=== PATIENT | female | born 1990 | race Caucasian/White ===

== ENCOUNTER 2021-08-28 13:44 | Outpatient (CLI) | payer OTHER, SELFPAY ==
[2021-08-28 15:13] LABS: Rubella IgG Antibody 40.1 IU/ML
== END 2021-08-28 13:45 | disposition home or self-care (01) ==
PROVIDERS: Visit Provider Obstetrics & Gynecology
DX: Z31.9 Encounter for procreative management, unspecified (principal)
CPT/HCPCS: 36415; 86762

== ENCOUNTER 2022-04-16 15:10 | Outpatient (CLI) | payer OTHER, SELFPAY ==
--- NOTE | ~2022-04-16 | US_ITS ---
EXAMINATION: US OB <=14 wk fetus w TV DATE: 04/16/2022 16:17 INDICATION: Establish dating and viability of during first trimester. TECHNIQUE: Real-time pelvic ultrasound utilizing both a transvaginal and transabdominal probe was pe rformed. The interpreting radiologist was not present for the study. COMPARISON: None. FINDINGS: The uterus measures 10.6 x 6.2 x 7.7 cm. There is an intrauterine gestational sac. A yolk sac and fe bernadette pole are identified. The crown rump length measures 3.1 cm, which correlates with an estimated ge stational age of 10 weeks and 0 days. heart motion is identified measuring 169 beats per minute (bpm) by M-mode Doppler. The right ovary measures 2.5 x 1.3 x 1.6 cm. The left ovary measures 1.7 x 1.3 x 1.7 cm. Vascular eric w identified at both ovaries on color Doppler. There is no free fluid in the pelvis. IMPRESSION: 1. Single living fetus with heart rate of 169 bpm. 2. Gestational age by ultrasound of 10 weeks 0 day(s) +/- 6 day(s) with ultrasound estimated date of delivery (CAROLYNE) of 11/12/2022. Reviewed, dictated and finalized at location A. IMPRESSION: 1. Single living fetus with heart rate of 169 bpm. 2. Gestational age by ultrasound of 10 weeks 0 day(s) +/- 6 day(s) with ultras ound estimated date of delivery (CAROLYNE) of 11/12/2022.
== END 2022-04-16 15:11 | disposition home or self-care (01) ==
LOC: ANHIMG 15:12
PROVIDERS: Visit Provider Student in an Organized Health Care Education/Training Program
DX: Z34.90 Encounter for supervision of normal pregnancy, unspecified, unspecified trimester (principal); Z3A.10 10 weeks gestation of pregnancy
CPT/HCPCS: 76801; 76817

== ENCOUNTER 2022-05-08 15:44 | Outpatient (CLI) | payer OTHER, SELFPAY ==
[2022-05-08 16:29] LABS: Basophils Absolute Auto 0.1 K/mm3 (0.0-0.1); Basophils Percent Auto 0.6 % (0.2-1.2); Eosinophils Absolute Auto 0.1 K/mm3 (0-0.3); Eosinophils Percent Auto 1.6 % (0-4.4); Hematocrit 37.1 % (37.0-47.0); Hemoglobin 12.4 g/dL (12.0-15.0); Immature Granulocyte Absolute 0.03 K/mm3 (0.00-0.031); Immature Granulocyte Percent A 0.4 % (0-0.5); Lymphocytes Absolute Auto 2.01 K/mm3 (0.9-3.2); Lymphocytes Percent Auto 25.4 % (18.3-44.2); Mean Corpuscular HGB Conc 33.4 g/dl (32-36); Mean Corpuscular Hemoglobin 31.6 pg (26-34); Mean Corpuscular Volume 94.6 fl (80-100); Mean Platelet Volume 11.3 fl (7.4-10.4); Monocytes Absolute Auto 0.5 K/mm3 (0.1-0.6); Monocytes Percent Auto 6.6 % (2.6-8.5); Neutrophils Absolute Auto 5.2 K/mm3 (1.3-6.7); Neutrophils Percent Auto 65.4 % (45.5-73.1); Platelet Count Result 217 k/mm3 (150-375); Red Blood Count 3.92 M/mm3 (4.2-5.4); Red Cell Distribution Width 13.2 % (11.5-14.5); White Blood Count 7.9 K/mm3 (4.5-10.0)
[2022-05-08 20:29] LABS: Vitamin D 25 Hydroxy 48.2 ng/mL
[2022-05-08 20:52] LABS: Rubella IgG Antibody 29.7 IU/ML
[2022-05-08 20:56] LABS: HIV 1/2 Ab P24 Ag Result Negative (Negative)
[2022-05-08 20:59] LABS: Hepatitis C Virus Antibody Negative (Negative)
[2022-05-09 06:25] LABS: Rapid Plasma Reagin Non-Reactive (NonReactive)
[2022-05-13 11:31] LABS: Hematocrit 38.6 % (35.0-45.0); Hemoglobin 12.5 g/dL (11.7-15.5); MCH 31.7 pg (27.0-33.0); RDW 12.7 % (11.0-15.0); Red Blood Cell Count 3.94 Mill/uL (3.80-5.10)
== END 2022-05-08 15:45 | disposition home or self-care (01) ==
PROVIDERS: Visit Provider Student in an Organized Health Care Education/Training Program
DX: Z34.02 Encounter for supervision of normal first pregnancy, second trimester (principal)
CPT/HCPCS: 36415; 81243; 82306; 83021; 84443; 85025; 86592; 86703; 86762; 86787; 86803; 86850; 86900; 86901; G0432

== ENCOUNTER 2022-08-05 11:43 | Outpatient (CLI) | payer OTHER, SELFPAY ==
[2022-08-05 13:30] LABS: Basophils Percent Auto 0.4 % (0.2-1.2); Eosinophils Absolute Auto 0.2 K/mm3 (0-0.3); Eosinophils Percent Auto 2.3 % (0-4.4); Hematocrit 32.9 % (37.0-47.0); Immature Granulocyte Absolute 0.05 K/mm3 (0.00-0.031); Immature Granulocyte Percent A 0.5 % (0-0.5); Lymphocytes Absolute Auto 1.53 K/mm3 (0.9-3.2); Lymphocytes Percent Auto 16.1 % (18.3-44.2); Mean Corpuscular HGB Conc 33.4 g/dl (32-36); Mean Corpuscular Hemoglobin 31.9 pg (26-34); Mean Corpuscular Volume 95.4 fl (80-100); Mean Platelet Volume 10.8 fl (7.4-10.4); Monocytes Absolute Auto 0.6 K/mm3 (0.1-0.6); Monocytes Percent Auto 6.3 % (2.6-8.5); Neutrophils Absolute Auto 7.1 K/mm3 (1.3-6.7); Neutrophils Percent Auto 74.4 % (45.5-73.1); Platelet Count Result 223 k/mm3 (150-375); Red Blood Count 3.45 M/mm3 (4.2-5.4); Red Cell Distribution Width 13.3 % (11.5-14.5); White Blood Count 9.5 K/mm3 (4.5-10.0)
[2022-08-05 13:38] LABS: Glucose 1 Hour PP 50gm Dose 119 mg/dL
[2022-08-05 16:07] LABS: Hepatitis B Surface Antigen Negative (Negative)
== END 2022-08-05 11:44 | disposition home or self-care (01) ==
LOC: ANHLAB 11:45
PROVIDERS: Visit Provider Student in an Organized Health Care Education/Training Program
DX: Z34.02 Encounter for supervision of normal first pregnancy, second trimester (principal)
CPT/HCPCS: 36415; 82947; 85025; 87340

== ENCOUNTER 2022-09-16 08:55 | Outpatient (CLI) | payer OTHER, SELFPAY ==
[2022-09-16 10:02] LABS: Basophils Absolute Auto 0.1 K/mm3 (0.0-0.1); Basophils Percent Auto 0.5 % (0.2-1.2); Eosinophils Absolute Auto 0.2 K/mm3 (0-0.3); Eosinophils Percent Auto 1.7 % (0-4.4); Hematocrit 33.8 % (37.0-47.0); Hemoglobin 11.5 g/dL (12.0-15.0); Immature Granulocyte Absolute 0.08 K/mm3 (0.00-0.031); Immature Granulocyte Percent A 0.8 % (0-0.5); Lymphocytes Percent Auto 15.8 % (18.3-44.2); Mean Corpuscular Hemoglobin 32.1 pg (26-34); Mean Corpuscular Volume 94.4 fl (80-100); Mean Platelet Volume 11.3 fl (7.4-10.4); Monocytes Absolute Auto 0.9 K/mm3 (0.1-0.6); Monocytes Percent Auto 8.4 % (2.6-8.5); Neutrophils Absolute Auto 7.4 K/mm3 (1.3-6.7); Neutrophils Percent Auto 72.8 % (45.5-73.1); Platelet Count Result 214 k/mm3 (150-375); Red Blood Count 3.58 M/mm3 (4.2-5.4); Red Cell Distribution Width 13.4 % (11.5-14.5); White Blood Count 10.2 K/mm3 (4.5-10.0)
[2022-09-16 10:53] LABS: HIV 1/2 Ab P24 Ag Result Negative (Negative)
[2022-09-16 12:32] LABS: Rapid Plasma Reagin Non-Reactive (NonReactive)
== END 2022-09-16 08:56 | disposition home or self-care (01) ==
LOC: ANHLAB 08:57
PROVIDERS: Visit Provider Obstetrics & Gynecology
DX: Z34.02 Encounter for supervision of normal first pregnancy, second trimester (principal)
CPT/HCPCS: 36415; 85025; 86592; 86703; G0432

== ENCOUNTER 2022-11-07 09:58 | Outpatient (RCR) | payer OTHER, SELFPAY ==
--- NOTE | ~2022-11-07 | US_ITS ---
EXAMINATION: US OB limited DATE: 11/07/2022 11:04 INDICATION: Assess amniotic fluid index during third trimester . TECHNIQUE: Real-time ultrasound of the pelvis was performed. The interpreting radiologist was not pre sent for the study. COMPARISON: 04/16/2022 FINDINGS: There is a single living fetus in vertex presentation. The placenta is posterior. heart rate i s 138 beats per minute (bpm). The amniotic fluid index is 22.4 cm, which is slightly greater within t he normal range (5th%-95%: 7.1-21.4 cm at 40 weeks estimated gestational age). IMPRESSION: 1. Single living fetus in vertex presentation with heart rate of 138 bpm. 2. Mild polyhydramnios with amniotic fluid index of 22.4 which is slightly greater than the 95th perc entile of 21.4 cm. Reviewed, dictated and finalized at location A. IMPRESSION: 1. Single living fetus in vertex presentation with heart rate of 138 bpm . 2. Mild polyhydramnios with amniotic fluid index of 22.4 [address] is slightly grea ter than the 95th percentile of 21.4 cm.
[2022-11-07 11:26] VITALS: BP 108/69; PULSE 74
== END 2022-12-05 15:13 | disposition home or self-care (01) ==
LOC: ANHOBOP 09:58
PROVIDERS: Visit Provider Obstetrics & Gynecology
DX: O48.0 Post-term pregnancy (principal); O40.3XX0 Polyhydramnios, third trimester, not applicable or unspecified; Z3A.40 40 weeks gestation of pregnancy
CPT/HCPCS: 59025; 76815

== ENCOUNTER 2022-11-10 21:20 | Inpatient (IN) | payer OTHER, SELFPAY ==
[2022-11-10 21:31] VITALS: TEMP 36.3
[2022-11-10 22:00] VITALS: BP 108/71; PULSE 60
--- NOTE | 2022-11-10 22:01 | LDADM ---
This patient, Barbara Espinoza, was admitted to Labor/Delivery/Recovery 106 on 11/10/22 at 21:20. Plans for labor, pain management and were discussed with patient. Patient/family oriented to hospital policies and general routines including ID bracelet, bed and alarms, visiting hours, pain management, procedures, bathroom and other care routines, personal items, smoking policy, room service/diet and guest tray routines, security routines, and visiting hours. Patient/Family are encouraged to report perceived risks to care and to ask questions if they do not understand what they are told or what they should do. See OBIX for further documentation.
[2022-11-10 22:31] LABS: Basophils Percent Auto 0.4 % (0.2-1.2); Eosinophils Absolute Auto 0.1 K/mm3 (0-0.3); Eosinophils Percent Auto 1.4 % (0-4.4); Hematocrit 38.4 % (37.0-47.0); Hemoglobin 13.2 g/dL (12.0-15.0); Immature Granulocyte Absolute 0.02 K/mm3 (0.00-0.031); Immature Granulocyte Percent A 0.2 % (0-0.5); Lymphocytes Absolute Auto 2.22 K/mm3 (0.9-3.2); Lymphocytes Percent Auto 23.6 % (18.3-44.2); Mean Corpuscular HGB Conc 34.4 g/dl (32-36); Mean Corpuscular Hemoglobin 31.9 pg (26-34); Mean Corpuscular Volume 92.8 fl (80-100); Mean Platelet Volume 12.8 fl (7.4-10.4); Monocytes Absolute Auto 0.8 K/mm3 (0.1-0.6); Monocytes Percent Auto 8.4 % (2.6-8.5); Neutrophils Absolute Auto 6.2 K/mm3 (1.3-6.7); Platelet Count Result 197 k/mm3 (150-375); Red Blood Count 4.14 M/mm3 (4.2-5.4); Red Cell Distribution Width 14.2 % (11.5-14.5); White Blood Count 9.4 K/mm3 (4.5-10.0)
[2022-11-10 22:53] LABS: Atypical Lymphocytes Present; Platelet Estimate Adequate (Adequate)
[2022-11-10 22:54] LABS: Schistocytes None Seen (NORMAL)
[2022-11-11] VITALS (142 sets, daily range): BP systolic 72–167; BP diastolic 44–146; PULSE 54–183; RESP 16–18; TEMP 36–37.2; O2SAT 84–100; BMI 27.6
[2022-11-11] MEDS: fentaNYL CITRATE INJ (*CRX) 100 MCG/2 ML VIAL 50 MCG IV PUSH ×3 (02:27→03:35)
[2022-11-11] MEDS: LACTATED RINGERS 1,000 ML 999 ML IV CONT (03:35)
--- NOTE | 2022-11-11 03:49 | WPDANESEPP ---
Anes - Eval Pre Procedure Procedure: Labor epidural Date/Time: 11/11/22 03:49 Surgeon: Brenda Preop Diagnosis: ABD pain with contractions Pre Op Diagnosis: IOL Patient Data Age: 32 Gender: F Height: Weight: Last Vital Signs Temp 98 F 11/11/22 02:00 Pulse 60 11/10/22 22:00 BP 108/71 11/10/22 22:00 O2 Del Method Room Air 11/10/22 22:00 Allergies Allergy/AdvReac Type Severity Reaction Status Date / Time No Known Allergies Allergy Verified 11/04/22 08:22 Home Medications Medication Instructions Recorded Confirmed Type Al hyd-Mg tr-alg ac-sod bicarb 80 tablet PO 08/28/21 08/19/22 History mg-14.2 mg chewable tablet (Gaviscon) fluticasone propionate 50 1 spray intranasal BID 08/28/21 08/19/22 History mcg/actuation nasal spray,suspension (Flonase Allergy Relief) loratadine 10 mg tablet (Claritin) 10 mg PO DAILY 08/28/21 08/19/22 History omeprazole 20 mg capsule,delayed 20 mg PO DAILY 08/28/21 08/19/22 History release calcium carbonate 600 mg calcium 600 mg PO BID 04/08/22 08/19/22 History (1,500 mg) tablet (Calcium) prenat.vits,margarito,axh-qagq-oernq 1 tablet PO DAILY 04/08/22 08/19/22 History acetaminophen 325 mg capsule 325 mg PO Q6H PRN Pain 06/03/22 08/19/22 History (Tylenol) ferrous sulfate 325 mg (65 mg 325 mg PO DAILY 10/25/22 10/25/22 History iron) tablet (Iron (ferrous sulfate)) Laboratory Tests 11/10/22 11/10/22 11/10/22 22:24 22:24 22:24 WBC 9.4 K/mm3 K/mm3 (4.5-10.0) RBC 4.14 M/mm3 L M/mm3 (4.2-5.4) Hgb 13.2 g/dL g/dL (12.0-15.0) Hct 38.4 % % (37.0-47.0) MCV 92.8 fl fl (80-100) MCH 31.9 pg pg (26-34) MCHC 34.4 g/dl g/dl (32-36) RDW 14.2 % % (11.5-14.5) Plt Count 197 k/mm3 k/mm3 (150-375) MPV 12.8 fl H fl (7.4-10.4) Immature Gran % (Auto) 0.2 % % (0-0.5) Neut % (Auto) 66.0 % % (45.5-73.1) Lymph % (Auto) 23.6 % % (18.3-44.2) [place] % (Auto) 8.4 % % (2.6-8.5) Eos % (Auto) 1.4 % % (0-4.4) Baso % (Auto) 0.4 % % (0.2-1.2) Lymph # (Auto) 2.22 K/mm3 K/mm3 (0.9-3.2) [place] # (Auto) 0.8 K/mm3 H K/mm3 (0.1-0.6) Eos # (Auto) 0.1 K/mm3 K/mm3 (0-0.3) Baso # (Auto) 0.0 K/mm3 K/mm3 (0.0-0.1) Abs Immat Gran (auto) 0.02 K/mm3 K/mm3 (0.00-0.031) Absolute Neuts (auto) 6.2 K/mm3 K/mm3 (1.3-6.7) Absolute Nucleated RBC 0.0 K/mm3 K/mm3 (0.0-0.012) Nucleated RBC % 0.0 % % (0.0-0.2) Atypical Lymphocytes Present Platelet Estimate Adequate (Adequate) Schistocytes None seen (NORMAL) RPR Pending Blood Type A Positive Antibody Screen Negative Patient hx anesthesia problems: none Family hx anesthesia problems: none Results Review: All pre-operative results and documents have been reviewed as part of the pre-operative evaluation. [facility] Past Medical History Medical History (Updated 11/11/22 @ 03:53 by Giovanny Sandhu CRNA) Allergies GERD (gastroesophageal reflux disease) Headache and not yet delivered Surgical History Surgical History H/O sinus surgery 07/22 History of tonsillectomy and adenoidectomy 07/22 [place] teeth removed 2001 Family History Family History Sibling Alcoholism Depression Grandparent Melanoma Uterine cancer Lung cancer Hypertension Heart disease Mother Anxiety Social History Social History Smoking status: Never smoker Alcohol intake: current Substance use: never Lack of Transportation: No Lack of Food: Never True Current Housing: I Have Housing Concerned About Future Housing:
[2022-11-11] MEDS: OXYTOCIN 30 UNITS/NS 500 ML 30 UNITS/500 ML BAG 6 UNITS IV CONT (09:23)
[2022-11-11] MEDS: LACTATED RINGERS 1,000 ML 125 ML IV CONT (11:50)
[2022-11-11] MEDS: OXYTOCIN 30 UNITS/NS 500 ML 30 UNITS/500 ML BAG 125 UNITS IV CONT (13:18)
[2022-11-11 13:27] LABS: Rapid Plasma Reagin Non-Reactive (NonReactive)
[2022-11-11] MEDS: IBUPROFEN 600 MG TABLET PO (14:30)
--- NOTE | 2022-11-11 15:29 | OBPPTRN ---
1529 Patient transferred to post room #279 via W/C. Support person present. Oriented to unit, room, information board, rooming in, admission packet and security measures. Patient verbalizes understanding.
--- NOTE | 2022-11-12 03:32 | PM.IMHP ---
H&P: HPI History of Present Illness Date/Time: 11/12/22 03:32 Chief Complaint: Leaking of fluid Narrative: She presented to L and D with complaints of LOF. SROM confirmed. Irregular contractions. Cervix 1 cm. She was admitted. PNC uncomplicated. Labs reviewed. GBS neg. Review of Systems Review of Systems: All systems reviewed & are unremarkable except as noted in HPI and below Constitutional: Constitutional: Reports no additional constitutional complaints and Denies headache(s) Eyes: Eyes: Denies spots in vision ENT: Reports system reviewed and no additional complaints, except as documented and Denies headache(s) Cardiovascular: Cardiovascular: Denies chest pain and Denies dyspnea Respiratory: Respiratory: Denies dyspnea Gastrointestinal: Gastrointestinal: Reports no additional gastrointestinal complaints Genitourinary: Genitourinary: Reports amenorrhea Musculoskeletal: Musculoskeletal: Reports no additional musculoskeletal complaints Integumentary/Breasts: Skin/Breast: Denies breast mass and Denies rash Neurologic: Denies headache(s) Psychiatric: Psychiatric: Reports no additional psychiatric complaints [facility] Past Medical History Medical History Allergies GERD (gastroesophageal reflux disease) Headache and not yet delivered Surgical History Surgical History H/O sinus surgery 07/22 History of tonsillectomy and adenoidectomy 07/22 [place] teeth removed 2001 Family History Family History Sibling Alcoholism Depression Grandparent Melanoma Uterine cancer Lung cancer Hypertension Heart disease Mother Anxiety Social History Social History Smoking status: Never smoker Alcohol intake: current Substance use: never Lack of Transportation: No Lack of Food: Never True Current Housing: I Have Housing Concerned About Future Housing: No Difficulty Paying Gas/Electric Bills: No Difficulty Paying for Meds: No Currently Unemployed: No Education: Master's Degree or Higher Difficulty w/ Childcare or Family Care: No Spiritual care concerns: No Agree to blood products: Yes Meds Home Medications and Allergies Home Medications Medication Instructions Recorded Confirmed Type Al hyd-Mg tr-alg ac-sod bicarb 80 tablet PO 08/28/21 08/19/22 History mg-14.2 mg chewable tablet (Gaviscon) fluticasone propionate 50 1 spray intranasal BID 08/28/21 08/19/22 History mcg/actuation nasal spray,suspension (Flonase Allergy Relief) loratadine 10 mg tablet (Claritin) 10 mg PO DAILY 08/28/21 08/19/22 History omeprazole 20 mg capsule,delayed 20 mg PO DAILY 08/28/21 08/19/22 History release calcium carbonate 600 mg calcium 600 mg PO BID 04/08/22 08/19/22 History (1,500 mg) tablet (Calcium) prenat.vits,margarito,ksx-mael-mceos 1 tablet PO DAILY 04/08/22 08/19/22 History acetaminophen 325 mg capsule 325 mg PO Q6H PRN Pain 06/03/22 08/19/22 History (Tylenol) ferrous sulfate 325 mg (65 mg 325 mg PO DAILY 10/25/22 10/25/22 History iron) tablet (Iron (ferrous sulfate)) Allergies Allergy/AdvReac Type Severity Reaction Status Date / Time No Known Allergies Allergy Verified 11/04/22 08:22 Vital Signs Vital Signs - 24 hr 11/11/22 03:50 11/11/22 03:55 11/11/22 03:56 Temperature Pulse Rate 183 H Respiratory Rate Blood Pressure 167/146 H Pulse Oximetry 100 100 Oxygen Delivery 11/11/22 03:58 11/11/22 04:00 11/11/22 04:03 Temperature Pulse Rate 69 63 64 Respiratory Rate Blood Pressure 132/61 121/68 122/73 Pulse Oximetry 97 Oxygen Delivery 11/11/22 04:05 11/11/22 04:07 11/11/22 04:10 Temperature Pulse Rate 63 62 66 Respiratory Rate Blood Pressure 137/70 115/71 11
--- NOTE | 2022-11-12 03:35 | PM.OBPRVD ---
OB - Delivery Note Procedure Delivery date: 11/11/22 Procedure: spontaneous vaginal delivery Delivery augmentation: Pitocin Delivery monitor: External FHT and Internal Uterine Route of delivery: Laceration Description: Vaginal Delivery repair: vicryl (3.0 vicryl) Specimen: No Quantitative Blood Loss (ml): 200 Anesthesia type: Epidural Disposition: Floor Complications: None Narrative: She was admitted for SROM. Pitocin augmentation initiated. She progressed into active labor and complete. She has a vaginal delivery. Terminal meconium noted. Baby Date of : 11/11/22 Time of : 12:37 Weeks of gestation at delivery: 40 gender: Male presentation: vertex Cord Vessel Description: Nuchal Cord, Loose, Clamped/Cut and Delayed Cord Clamping score one minute: 8 score five minutes: 9 AMG Delivery Billing Delivery Delivery: Delivery Charge
[2022-11-12] MEDS: IBUPROFEN 600 MG TABLET PO ×3 (05:45→17:34)
[2022-11-12 06:20] LABS: Hematocrit 35.2 % (37.0-47.0); Hemoglobin 11.7 g/dL (12.0-15.0)
[2022-11-12 07:10] VITALS: BP 100/50; PULSE 62; RESP 16; TEMP 36.6; O2SAT 97
--- NOTE | 2022-11-12 08:00 | PC.NURSE ---
PT introductions made and plan of care discussed per post , pain management, breast feeding, daily care activities. PT and spouse both recipients of such instructions this shift and no barriers to learning identified at this time. PT received such instructions per one to one discussion , mom baby care guide and demonstrations. PT verbalized understanding of such care.
--- NOTE | 2022-11-12 09:47 | PC.NURSE ---
On 11/12/22, the student, Dory Treviño, provided care and completed [facility] documentation on this patient. I have reviewed the student's documentation and agree with the findings.
--- NOTE | 2022-11-12 10:23 | WPDANLDPN2 ---
Anes-Prog Note L&D Date/Time: 11/12/22 10:23 Comfortable throughout: labor and delivery Neuraxial method: epidural Epidural/Spinal procedure site: tender (with movement) Neuro status: Neuro function grossly intact. Cardiovascular status: normal Respiratory status: normal Airway patency: baseline Mental status: baseline Post-Op hydration status: normal Vital Signs: Last Vital Signs Temp 36.6 C 11/12/22 07:10 Pulse 62 11/12/22 07:10 Resp 16 11/12/22 07:10 BP 100/50 L 11/12/22 07:10 Pulse Ox 97 11/12/22 07:10 O2 Del Method Room Air 11/11/22 17:47 Pain score (VAS): 3/10 I/O: Intake & Output 11/11/22 11/12/22 11/12/22 23:59 07:59 15:59 Intake Total 740 Balance 740 Post-procedural complaints: none Patient feedback: Patient satisfied with anesthetic care.
--- NOTE | 2022-11-12 10:41 | PC.NURSE ---
[id number] Introductions were made, then consulted with patient to assess needs related to . Mother led the conversation with her?plans to feed?her infant, states she is with no pain, and Primary RN assisted with the most recent effective breastfeed. Resources provided for inpatient and outpatient services with the feeding sheet, mom/baby guide and name written on the white board. Mother voiced understanding of information and is open for reviewing education. Reviewed the importance of skin to skin with upright on chest between the breast and stimulating with massage touch and burping for waking to breastfeed. Mother voiced understanding of feeding infant on demand aiming for every 2-3 hours as a guide, how to watch for good intake and output, then when to call for assistance if the latch is painful or doesn't wake to feed. Reported to the primary RN.
[2022-11-12] MEDS: ACETAMINOPHEN 325 MG TABLET 650 MG PO ×2 (11:09→17:33)
[2022-11-12] MEDS: FERROUS SULFATE 324 MG TABLET PO (11:11)
[2022-11-12] MEDS: DOCUSATE SODIUM 100 MG CAPSULE PO ×2 (11:11→17:35)
[2022-11-12 11:15] VITALS: PULSE 63; RESP 18; O2SAT 98
[2022-11-12 12:25] VITALS: BP 116/72; PULSE 63; RESP 18; TEMP 36.6; O2SAT 98
--- NOTE | 2022-11-12 15:28 | PM.OBPNVD ---
OB - PN: Subj Subjective Date/time seen: 11/12/22 15:28 Patient comments: pain well controlled, tolerating diet and other (Decreasing lochia.) baby status: doing well and nursing well [place] feeding status: exclusively breast feeding OB - PN: Obj Data Labs 11/12/22 05:44 Labs: Laboratory Results - last 24 hr 11/12/22 05:44 Hgb 11.7 L Hct 35.2 L OB - PN A/P Plan day: 1 Plan: routine care Comments: Patient doing well. Time Spent With Patient Time: Total time spent is greater than 50% in coordination of care (as documented) at patient's floor/unit and/or counseling patient: Exam Psych: Affect: normal affect Other: Abd: fundus firm below umbilicus, nontender Perineum: healing Ext: nontender
[2022-11-12 19:30] VITALS: BP 113/74; PULSE 58; RESP 16; TEMP 36.6
--- NOTE | 2022-11-12 20:00 | PC.NURSE ---
Patient instructed to view the discharge video Mother & Baby Care, The First Two Weeks . Patient was given the opportunity and encouraged to ask questions. Patient verbalized understanding of information shared and has been given the mother/baby guide for home reference.
[2022-11-13 07:30] VITALS: BP 112/74; PULSE 70; RESP 16; TEMP 36.5; O2SAT 99
[2022-11-13] MEDS: DOCUSATE SODIUM 100 MG CAPSULE PO (10:47)
[2022-11-13] MEDS: MULTIVIT/MIN/PREN/FOL AC/IRON TABLET 1 TAB PO (10:47)
[2022-11-13] MEDS: FERROUS SULFATE 324 MG TABLET PO (10:47)
[2022-11-13] MEDS: IBUPROFEN 600 MG TABLET PO (10:48)
--- NOTE | 2022-11-13 10:55 | PM.OBDSVD ---
DS: Admitting Diagnosis Discharge Date 11/13/2022 Admitting Diagnosis Spontaneous rupture of membranes. DS: Discharge Diagnosis Discharge Diagnosis (1) Delivery normal: Code(s): O80 - Encounter for full-term uncomplicated delivery Status: Acute OB - DS: Summary Hospital Course Hospital Course: She was admitted for Spontaneous rupture of membranes. She had pitocin augmentation. She subsequently had a vaginal delivery. She did well . She was ambulating well, had adequate pain control, lochia decreasing and the baby was doing well. She was discharged to home on day 2. OB Procedures : Ultrasound OB Procedures Intrapartum: Spontaneous Vag Delivery OB Procedures: : None Peripartum Data Delivery Method: Natural Vaginal Laceration Description: Perineal - 1st Degree complications: none Status at Discharge Functional status at discharge: independent ambulation Time Spent with Patient Time attestation: Total time spent providing and/or coordinating discharge services: Exam Const: General: cooperative Orientation/consciousness: oriented to person, oriented to place and oriented to time HENMT: Face/Nose/Sinus: Normal external nose present Eyes: General: appearance normal, both eyes and all related structures Resp: Effort & Inspection: normal respiratory effort GI: Inspection: normal to inspection Skin: General skin exam: normal color Neuro: General: oriented to person, oriented to place and oriented to time Extrem: General: normal to inspection and no calf tenderness Psych: Appearance: grossly normal Mental Status: mental status grossly normal Discharge Plan Discharge Attending physician on discharge: Maxim Gutierrez Consulting providers: Anne Sanford ; Giovanny Sandhu Discharging Clinician: Maxim Gutierrez Anticipated Discharge Date/Time: 11/13/22 10:54 Patient Disposition: Home, Self-Care Activity: may shower and pelvic rest Diet: regular Discharge Instructions: Education: Mom and Baby Guide Given to: Mother Follow-Up: Call your delivering provider's office for an appointment to be seen in: 4 Weeks Mom and baby [facility] the follow-up appointment. Appointment Date/Time: November 14, 2022 at 11:00 am What to expect at your follow-up visit: Physical Assessment Call [phone] if you are unable to keep your appointment time. BREAST CARE: * Wear a snug supportive bra. * For engorgement discomfort: Breast Feeding: * Apply warm moist washcloths * Express milk as needed to relieve engorgement * Wear loose clothing * For sore nipples: * Identify correct latch-on * Apply warm moist washcloths before and after nursing * Air dry nipples after nursing * May apply Lansinoh cream to nipples PERINEAL CARE: * Until bleeding stops, use your papa bottle after urinating * Change your pad frequently throughout the day * You may take sitz baths several times a day (fill your bathtub with warm water and soak for 20 minutes.) Do NOT bathe in the water * No tub baths until seen by your physician - You may shower ACTIVITY: * Rest as much as possible. * Do not exercise or lift anything heavier than your baby (such as laundry or other children.) * Avoid stairs or driving as much as possible. * Do not put anything into the vagina. No douching, tampons, or sexual activity until seen by physician. NOTIFY PHYSICIAN IF YOU HAVE ANY QUESTIONS OR IF ANY OF THE FOLLOWING SYMPTOMS OCCUR: * If your perineum becomes red, swollen, or more painful than what you have experienced in the hospital. * If your vaginal bleeding becomes foul smelling. * If your vaginal bleeding becomes more heavy than a period or if your bleeding changes from pink to bright red. However, you may pass an occasional walnut-sized clot once or twice for the first week postp
--- NOTE | 2022-11-13 15:56 | PC.NURSE ---
[id number] Mother led the conversation with her experience and plan to feed her so far and her ability to independently latch optimally without discomfort. Reminded parents to use good handwashing technique to prevent infection. Mother is feeding appropriately for growth of and understands stimulating to eat if needed. Infant has had appropriate feedings in the last 24 hours meets the outcomes for weight, output and jaundice at this time. Mother states she is confident to continue effectively breastfeed her infant at home, when to call for assistance and denies any additional assistance or education at this time. Reinforced understanding of milk production, transition of milk, signs of adequate intake, transition of stool, prevention/relief of engorgement, responsive watching for feeding cues, the different methods of stimulating infant to breastfeed 2-3 hours after the start of the last feeding, community resources, and when to call a provider using the resource of the mom and baby guide. Mother voiced understanding of the education shared.
[2022-11-14 11:29] VITALS: BP 111/77; PULSE 60; RESP 16; TEMP 36.8; O2SAT 99
== END 2022-11-13 12:50 | disposition home or self-care (01) | DRG 806 ==
LOC: ANHLDR 22:57 → ANHOB2 11-11 15:33
PROVIDERS: Admitting Provider Obstetrics & Gynecology; Visit Provider Obstetrics & Gynecology
DX: O69.81X0 Labor and delivery complicated by cord around neck, without compression, not applicable or unspecified (principal); O71.4 Obstetric high vaginal laceration alone; Z37.0 Single live birth; Z3A.40 40 weeks gestation of pregnancy
CPT/HCPCS: 36415; 85014; 85018; 85025; 86592; 86850; 86900; 86901; A9270; J2590; J2795; J3010; J7120

== ENCOUNTER 2023-02-09 15:43 | Outpatient (CLI) | payer OTHER, SELFPAY ==
[2023-02-09 19:17] LABS: Alanine Aminotransferase 17 U/L (6-35); Albumin Level 4.4 g/dL (3.5-5.1); Alkaline Phosphatase 52 U/L (38-126); Anion Gap 4 mmol/L (8-16); Aspartate Amino Transferase 32 U/L (14-36); Bilirubin,Total 0.6 mg/dL (0.2-1.3); Blood Urea Nitrogen 17 mg/dL (7-17); Calcium 9.1 mg/dL (8.4-10.2); Carbon Dioxide 34 mmol/L (22-30); Chloride 101 mmol/L (98-107); Estimated Glomerular Filt Rate > 60; Glucose 75 mg/dL (65-110); Potassium 3.9 mmol/L (3.4-5.0); Sodium 139 mmol/L (137-145)
== END 2023-02-09 15:44 | disposition home or self-care (01) ==
LOC: ANHGOSHLAB 15:44
PROVIDERS: PCP Family Medicine; Visit Provider Family Medicine
DX: Z13.228 Encounter for screening for other metabolic disorders (principal); Z13.29 Encounter for screening for other suspected endocrine disorder
CPT/HCPCS: 36415; 80053; 84443

== ENCOUNTER 2024-02-25 14:21 | Outpatient (CLI) | payer OTHER, SELFPAY ==
[2024-02-25 19:55] LABS: Alanine Aminotransferase 40 U/L (6-35); Albumin Level 4.6 g/dL (3.5-5.1); Alkaline Phosphatase 65 U/L (38-126); Anion Gap 9 mmol/L (4-12); Aspartate Amino Transferase 52 U/L (14-36); Bilirubin,Total 0.6 mg/dL (0.2-1.3); Blood Urea Nitrogen 17 mg/dL (7-17); Calcium 9.2 mg/dL (8.4-10.2); Carbon Dioxide 27 mmol/L (22-30); Chloride 103 mmol/L (98-107); Estimated Glomerular Filt Rate > 60; Glucose 83 mg/dL (65-110); Potassium 3.9 mmol/L (3.4-5.0); Sodium 139 mmol/L (137-145)
[2024-02-25 20:11] LABS: Basophils Absolute Auto 0.1 K/mm3 (0.0-0.1); Basophils Percent Auto 0.9 % (0.2-1.2); Eosinophils Absolute Auto 0.3 K/mm3 (0-0.3); Eosinophils Percent Auto 3.7 % (0-4.4); Hematocrit 41.9 % (37.0-47.0); Hemoglobin 13.7 g/dL (12.0-15.0); Immature Granulocyte Absolute 0.01 K/mm3 (0.00-0.031); Immature Granulocyte Percent A 0.1 % (0-0.5); Lymphocytes Percent Auto 44.8 % (18.3-44.2); Mean Corpuscular HGB Conc 32.7 g/dl (32-36); Mean Corpuscular Hemoglobin 30.3 pg (26-34); Mean Corpuscular Volume 92.7 fl (80-100); Mean Platelet Volume 11.5 fl (7.4-10.4); Monocytes Absolute Auto 0.5 K/mm3 (0.1-0.6); Monocytes Percent Auto 7.3 % (2.6-8.5); Neutrophils Absolute Auto 3.2 K/mm3 (1.3-6.7); Neutrophils Percent Auto 43.2 % (45.5-73.1); Platelet Count Result 211 k/mm3 (150-375); Red Blood Count 4.52 M/mm3 (4.2-5.4); Red Cell Distribution Width 13.5 % (11.5-14.5); White Blood Count 7.4 K/mm3 (4.5-10.0)
== END 2024-02-25 14:22 | disposition home or self-care (01) ==
LOC: ANHGOSHLAB 14:23
PROVIDERS: PCP Family Medicine; Visit Provider Family Medicine
DX: R53.83 Other fatigue (principal); Z13.228 Encounter for screening for other metabolic disorders; Z13.29 Encounter for screening for other suspected endocrine disorder
CPT/HCPCS: 36415; 80053; 84443; 85025

== ENCOUNTER 2024-05-02 09:11 | Outpatient (CLI) | payer OTHER, SELFPAY ==
[2024-05-02 15:05] LABS: Alanine Aminotransferase 19 U/L (6-35); Albumin Level 4.3 g/dL (3.5-5.1); Alkaline Phosphatase 48 U/L (38-126); Anion Gap 8 mmol/L (4-12); Aspartate Amino Transferase 70 U/L (14-36); Bilirubin,Total 0.5 mg/dL (0.2-1.3); Blood Urea Nitrogen 17 mg/dL (7-17); Calcium 8.9 mg/dL (8.4-10.2); Carbon Dioxide 32 mmol/L (22-30); Chloride 100 mmol/L (98-107); Estimated Glomerular Filt Rate > 60; Glucose 55 mg/dL (65-110); Potassium 3.7 mmol/L (3.4-5.0); Sodium 140 mmol/L (137-145)
== END 2024-05-02 09:12 | disposition home or self-care (01) ==
LOC: ANHGOSHLAB 09:12
PROVIDERS: PCP Family Medicine; Visit Provider Family Medicine
DX: Z13.228 Encounter for screening for other metabolic disorders (principal)
CPT/HCPCS: 36415; 80053

== ENCOUNTER 2024-08-01 09:33 | Outpatient (CLI) | payer OTHER, SELFPAY ==
[2024-08-01 22:09] LABS: Alanine Aminotransferase 27 U/L (6-35); Albumin Level 4.5 g/dL (3.5-5.1); Alkaline Phosphatase 42 U/L (38-126); Anion Gap 6 mmol/L (4-12); Aspartate Amino Transferase 48 U/L (14-36); Bilirubin,Total 0.4 mg/dL (0.2-1.3); Blood Urea Nitrogen 15 mg/dL (7-17); Calcium 9.2 mg/dL (8.4-10.2); Carbon Dioxide 27 mmol/L (22-30); Chloride 105 mmol/L (98-107); Estimated Glomerular Filt Rate > 60; Potassium 4.1 mmol/L (3.4-5.0); Sodium 138 mmol/L (137-145)
[2024-08-01 22:36] LABS: Glucose 57 mg/dL (65-110)
--- OUTSIDE RECORDS SUMMARY | 2024-08-08 08:01 | XMS_ITS | Encounter Summary ---
Author Organization [facility] Address [address] [place] [address]. [place], [place] [id number] [place] [id number] Care Team Providers Care Parts Fabricator Name Role Phone Unavailable Primary Care Provider Unavailabl e Encounter Details Date Type Department Care Team (Latest Contact Info) Description 11/23/2020 11:46 AM CDT - 11/23/2020 11:59 PM CDT Hospital Encounter [facility] [address] [place] [address] Artemio Guerrero MD [address] [place] [address] Discharge Disposition: Home or Self Care (Routine Discharge) Social History Tobacco Use Types Packs/Day Years Used Date Smoking Tobacco: Never Assessed Comments Unknown Sex and Gender Information Value Date Recorded Sex Assigned at Not on file 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 No / Unsure 11/23/2020 11:45 AM CDT documented as of this encounter Plan of Treatment Not on file documented as of this encounter Visit Diagnoses Diagnosis Need for prophylactic vaccination against viral disease- Primary Need for prophylactic vaccination and inoculation against other viral diseases documented in this encounter
--- OUTSIDE RECORDS SUMMARY | 2024-08-08 08:01 | XMS_ITS | Encounter Summary ---
Author Organization [facility] Address [address] [place] [address]. 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 No / Unsure 11/23/2020 11:45 AM CDT documented as of this encounter Plan of Treatment Not on file documented as of this encounter Visit Diagnoses Not on filedocumented in this encounter
--- OUTSIDE RECORDS SUMMARY | 2024-08-08 08:01 | XMS_ITS | Clinical Summary ---
Author Organization [facility] Address [address] [place] [address]. 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 Gender Identity Not on file Sexual Orientation Not on file Plan of Treatment Health Maintenance Due Date Last Done Comments Cervical Cancer Screening Pa p Smear (Age 30 to 64) Every 3 Years 1989 Annual Physical 1992 Hepatitis C 2007 DTaP, Tdap and Td Vaccines ( 1 - Tdap) 2008 Hepatitis B Vaccines (1 of 3 - 19+ 3-dose series) 2008 Cervical Cancer Screening Pa p with HPV Testing (Age 30 to 64) Every 5 Years 2019 Cervical Cancer Screening wi HPV 2019 COVID-19 Vaccine (2023-2 5 season) 2024 11/23/2020, 10/26/2020 Influenza Adult (#1) 2024 HPV Vaccines Aged Out No longer eligi ble based on patient's age to complete this topic Meningococcal Vaccine Aged Out No zakiya maria luisa eligible based on patient's age to complete this topic Pneumococcal Vaccine: Pediatrics (0 to 5 Years) and At-Risk Patients (6 to 64 Years) Aged Out No longer eligible b ased on patient's age to complete this topic RSV Immunizations Under 20 Months Aged Out No longer eligible b ased on patient's age to complete this topic
--- OUTSIDE RECORDS SUMMARY | 2024-08-08 08:01 | XMS_ITS | Encounter Summary ---
Author Organization [facility] Address [address] [place] [address]. [place] [address] Care Team Providers Care Leak Inspector Name Role Phone Unavailable Primary Care Provider Unavailabl e Encounter Details Date Type Department Care Team (Latest Contact Info) Description 10/26/2020 Travel Social History Tobacco Use Types Packs/Day Years Used Date Smoking Tobacco: Never Assessed Comments Unknown Sex and Gender Information Value Date Recorded Sex Assigned at Not on file Legal Sex Female 12:06 PM RIVET MAKER Gender Identity Not on file Sexual Orientation Not on file COVID-19 Exposure Response Date Recorded In the last month, have you been in contact with someone who was confirmed or suspected to have Coronavirus / COVID-19? Yes 10/26/2020 12:30 PM RIVET MAKER documented as of this encounter Plan of Treatment Not on file documented as of this encounter Visit Diagnoses Not on filedocumented in this encounter
--- OUTSIDE RECORDS SUMMARY | 2024-08-08 08:01 | XMS_ITS | Encounter Summary ---
Author Organization [facility] Address [address] [place] [address]. [place] [address] [place] [address] Care Team Providers Care Desk Clerk Name Role Phone Unavailable Primary Care Provider Unavailabl e Encounter Details Date Type Department Care Team (Late st Contact Info) Description 10/25/2020 Orders Only [facility] [place] [address] Kirill Owens MD Social History Tobacco Use Types Packs/Day Years Used Date Smoking Tobacco: Never Assessed Comments Unknown Sex and Gender Information Value Date Recorded Sex Assigned at Not on file Legal Sex Female 12:06 PM EVIDENCE CUSTODIAN Gender Identity Not on file Sexual Orientation Not on file COVID-19 Exposure Response Date Recorded In the last month, have you been in contact with someone who was confirmed or suspected to have Coronavirus / COVID-19? Yes 10/26/2020 12:30 PM EVIDENCE CUSTODIAN documented as of this encounter Plan of Treatment Not on file documented as of this encounter Visit Diagnoses Not on filedocumented in this encounter
--- OUTSIDE RECORDS SUMMARY | 2024-08-08 08:01 | XMS_ITS | Encounter Summary ---
Author Organization [facility] Address [address] [place] [address]. [place], [place] [address] [place] [address] Care Team Providers Care Explosives Engineer Name Role Phone Unavailable Primary Care Provider Unavailabl e Encounter Details Date Type Department Care Team (Latest Contact Info) Description 10/26/2020 12:30 PM DRIER TAKE OFF TENDER - 10/26/2020 11:59 PM DRIER TAKE OFF TENDER Hospital Encounter [facility] [address] [place] [address] Artemio Guerrero MD [address] [place] [address] Discharge Disposition: Home or Self Care (Routine Discharge) Social History Tobacco Use Types Packs/Day Years Used Date Smoking Tobacco: Never Assessed Comments Unknown Sex and Gender Information Value Date Recorded Sex Assigned at Not on file Legal Sex Female 12:06 PM DRIER TAKE OFF TENDER Gender Identity Not on file Sexual Orientation Not on file COVID-19 Exposure Response Date Recorded In the last month, have you been in contact with someone who was confirmed or suspected to have Coronavirus / COVID-19? Yes 10/26/2020 12:30 PM DRIER TAKE OFF TENDER documented as of this encounter Plan of Treatment Not on file documented as of this encounter Visit Diagnoses Diagnosis Need for prophylactic vaccination against viral disease- Primary Need for prophylactic vaccination and inoculation against other viral diseases documented in this encounter
--- OUTSIDE RECORDS SUMMARY | 2024-08-08 08:02 | XMS_ITS | Clinical Summary ---
Author Organization [facility] [address] Address [address] [place] [address] Care Team Providers Care Unix Developer Name Role Phone No, Physician Primary Care Provider [phone] Allergies No known active allergies Medications fluticasone propionate (FLONASE) 50 mcg/actuation nasal spray Administer 1 spray into each nostril daily Active loratadine (Claritin) 10 mg tablet Take 10 mg by mouth daily Active omeprazole (PriLOSEC) 10 mg capsule Take 10 mg by mouth daily Active vit 25-nuqq-aague-d mayers 27mg iron- 800 mcg-250 mg capsule Take by mouth Active iron 18 mg tablet Take by mouth Active calcium acetate,phospha t bind, (PHOSLO) 667 mg tablet Take 1,334 mg by mouth 3 (three) times a day with meals Active Active Problems No known active problems Social History Tobacco Use Types Packs/Day Years Used Date Smoking Tobacco: Never Assessed Comments Unknown Sex and Gender Information Value Date Recorded Sex Assigned at Not on file Legal Sex Female 1:43 PM POWDER BLENDER Gender Identity Not on file Sexual Orientation Not on file Obstetrics History Para Term AB IAB SAB Ectopic Multiple Livin g Live Births 1 Date Outcome GA Total Labor Labor/2nd/3rd Weight Sex Type Anes PTL Sarita A1 A5 Name Clin Last Filed Vital Signs Vital Sign Reading Time Taken Comments Blood Pressure 132/84 07/16/2022 4:08 PM POWDER BLENDER Pulse 80 07/16/2022 4:08 PM POWDER BLENDER Temperature 36.6 ??C (97.8 ??F) 07/16/2022 4:08 PM CS T Respiratory Rate - - Oxygen Saturation 98% 07/16/2022 4:08 PM POWDER BLENDER Inhaled Oxygen Concentration - - Weight 65.8 kg (145 lb 1.6 oz) 07/16/2022 4:08 P M POWDER BLENDER Height - - Body Mass Index - - Plan of Treatment Health Maintenance Due Date Last Done Comments Cervical Cancer Screening 1989 Depression Screening 1989 Hepatitis C Screening 1989 DTaP/Tdap/Td Vaccine (1 - Tdap) 2000 Varicella Vaccines (1 of 2 - 13+ 2-dose series) 2002 Hepatitis B Screening 2007 Regular Well Visit/Exam 18-64 2007 Covid-19 Vaccine (2023-2 5 season) 2024 09/04/2021, 11/23/2020, 10/26/2020 Influenza Vaccine (#1) 2024 , 05/27/2021 HPV Vaccines Aged Out No longer eligi ble based on patient's age to complete this topic Pneumococcal vaccine <65 Aged Out No longer eligible based on patient's age to complete this topic Insurance [employer] SIG [id number] COMMERCIAL GENERIC [facility] [id number] Care Teams Unix Developer Relationship Specialty Start Date End Date No, Physician PCP - General 07/16/22
--- OUTSIDE RECORDS SUMMARY | 2024-08-08 08:02 | XMS_ITS | Data Portability ---
Author Organization [facility] [employer] [facility] Address [address] [place] [address] Assessment No assessment recorded. Plan of Treatment Reminders Order Date Submit Date Provider Last Modified By Organization Details Last Modified Time Details Appointments None record ed. Lab None record ed. Referral None record ed. Procedures None record ed. Surgeries None record ed. Imaging None record ed. Medication Orders None record ed. Patient TargetsNo targets recorded. Patient InstructionsNo instructions recorded. Reason for Referral None Reported. Medical Equipment None Reported. Allergies No known drug allergies Medications Name Sig Start Date Stop Date Status Note LastModified by Organization Details LastModified Time fluticasone propionate 50 mcg/actuation nasal spray,suspens ion active Not Available Not Available Not Available loratadine 10 mg tablet TAKE 1 TABLET BY MOUTH EVERY DAY active Not Available Not Available No t Available Vitals None Recorded Social History None recorded. Functional Status None recorded. Mental Status None recorded. Family History Nothing Reported. Medical History No medical history recorded. Gynecological HistoryNo gynecological history recorded. Obstetrics History GPAL:G 0 P 0 0 0 0 Past Encounters Encounter ID Performer Location Encounter Start Date Encounter Closed Date Diagnosis/Indication Diagnosis SNOMED-CT Code Diagnosis ICD10 Code [id number] QUIRINO ALFREDO MD [facility] [address] [facility] [place] [address] 03/21/2020 11:03:37 03/21/2020 11:04:49 Allergic rhinitis 91529870 J30.89 [id number] [facility]INO [facility] [address] [place] [address] 06/06/2020 13:54:22 06/06/2020 14:19:11 Allergic rhinitis 72014363 J30.89 Health Concerns Section Related Observation LastModified by Organization Detai ls LastModified Time None Recorded Concern Status LastModified by Organization Details LastModified Time None Recorded Advance Directives Directive None Recorded Payers Encounter Date Sequence Insurance Name Policy Number Policy Warren Covered Member ID Warren Member ID Guarantor Name 03/21/2020 1 [facility] Barbara Espinoza [id number] Barbara Espinoza 06/06/2020 1 [facility] Barbara Hollison [id number] Barbara Espinoza OBGyn Episode No OBEpisode recorded.
--- OUTSIDE RECORDS SUMMARY | 2024-08-08 08:03 | XMS_ITS | Encounter Summary ---
Author Organization [facility] Address [address] [place] [facility] [address] [place] [address] Care Team Providers Care Chef Under Name Role Phone No, Physician Primary Care Provider [phone] Reason for Visit * Reason Comments Cough Pt is c/o cough, con gestion, drainage, sore throat, diarrhea, vomiting fever. Started about 4 days ago. Home covid test neg. Pt is currently . Her niece tested pos for Strep and 2 brothers tested pos for COVID. Encounter Details Date Type Department Care Team (Latest Contact Info) Description 07/16/2022 4:15 PM PLATE PAINTER Office Visit [facility] [address] [address] Collin Solorzano NP [address] [place] [address] [address] [place] [address] Acute nasopharyngitis (Primary Dx); , unspecified gestational age Social History Tobacco Use Types Packs/Day Years Used Date Smoking Tobacco: Never Assessed Comments Yes Sex and Gender Information Value Date Recorded Sex Assigned at Not on file Legal Sex Female 1:43 PM PLATE PAINTER Gender Identity Not on file Sexual Orientation Not on file documented as of this encounter Last Filed Vital Signs Vital Sign Reading Time Taken Comments Blood Pressure 132/84 07/16/2022 4:08 PM PLATE PAINTER Pulse 80 07/16/2022 4:08 PM PLATE PAINTER Temperature 36.6 ??C (97.8 ??F) 07/16/2022 4:08 PM CS T Respiratory Rate - - Oxygen Saturation 98% 07/16/2022 4:08 PM PLATE PAINTER Inhaled Oxygen Concentration - - Weight 65.8 kg (145 lb 1.6 oz) 07/16/2022 4:08 P M PLATE PAINTER Height - - Body Mass Index - - documented in this encounter Progress Notes * Collin Solorzano NP - 07/16/2022 4:15 PM CST Images from the original note were not included. Subjective/Objective Patient ID: Barbara Espinoza is a 32 y.o. female. Chief Complaint Cough (Pt is c/o cough, congestion, drainage, sore throat, diarrhea, vomiting fever. Started about 4 days ago. Home covid test neg. Pt is currently . Her niece tested pos for Strep and 2 brothers tested pos for COVID. ) Pt presents to [facility] Exposed to covid 07/02/22 and last week. Niece had strep URI This is a new problem. Episode onset: 4 days ago, thursday. Maximum temperature: max 100F. Associated symptoms include congestion, coughing, diarrhea (x1 on thursday), rhinorrhea, a sore throat and vomiting (x1 thursday only). Pertinent negatives include no abdominal pain, chest pain, ear pain, headaches, nausea, neck pain, rash, shortness of breath, sinus pain, sneezing or wheezing. Review of Systems Constitutional: Positive for fever (100F over the weekend none since). Negative for appetite change, chills, diaphoresis and fatigue. HENT: Positive for congestion, postnasal drip, rhinorrhea and sore throat. Negative for ear discharge, ear pain, sinus pressure, sinus pain and sneezing. Respiratory: Positive for cough. Negative for chest tightness, shortness of breath and wheezing. Cardiovascular: Negative for chest pain. Gastrointestinal: Positive for diarrhea (x1 on thursday) and vomiting (x1 thursday only). Negative for abdominal pain and nausea. Musculoskeletal: Negative for myalgias, neck pain and neck stiffness. Skin: Negative for rash. Neurological: Negative for dizziness and headaches. Hematological: Negative for adenopathy. Physical Exam Vitals and nursing note reviewed. Constitutional: General: She is awake. She is not in acute distress. Appearance: Normal appearance. HENT: Head: Normocephalic and atraumatic. Right Ear: Tympanic membrane and ear canal normal. Left Ear: Tympanic membrane and ear canal normal. Nose: Congestion and rhinorrhea present. Right Sinus: No maxillary sinus tenderness or frontal sinus tenderness. Left Sinus: No maxillary sinus tenderness or frontal sinus tenderness. Mouth/Throat: Lips: Gypsum. Mouth: Mucous membranes are moist. Tongue: Tongue does not deviate from midline. Pharynx: Uvula midline. Posterior oropharyngeal erythema present. No pharyngeal swelling, oropharyngeal exudate or uvula swelling. Tonsils: No tonsillar exudate or tonsillar abscesses. Eyes: General: Lids are normal. Pupils: Pupils are equal, round, and reactive to light. Cardiovascular: Rate and Rhythm: Normal rate and regular rhythm. Pulses: Normal pulses. Heart sounds: Normal heart sounds. Pulmonary: Effort: Pulmonary effort is normal. No respiratory distress. Breath sounds: Normal breath sounds. No decreased breath sounds, wheezing, rhonchi or rales. Abdominal: General: Bowel sounds are normal. Palpations: Abdomen is soft. Tenderness: There is no abdominal tenderness. Musculoskeletal: Cervical back: Full passive range of motion without pain, normal range of motion and neck supple. Lymphadenopathy: Cervical: No cervical adenopathy. Skin: General: Skin is warm and dry. Neurological: Mental Status: She is alert and oriented to person, place, and time. Gait: Gait normal. Psychiatric: Behavior: Behavior is cooperative. Vitals: 07/16/22 1608 BP: 132/84 BP Location: Left arm Patient Position: Sitting Pulse: 80 Temp: 36.6 ??C (97.8 ??F) TempSrc: Oral SpO2: 98% Weight: 65.8 kg (145 lb 1.6 oz) No results found. History reviewed. No pertinent past medical history. Current Outpatient Medications: calcium acetate,phosphat bind, (PHOSLO) 667 mg tablet, Take 1,334 mg by mouth 3 (three) times a daywith meals, Disp: , Rfl: fluticasone propionate (FLONASE) 50 mcg/actuation nasal spray, Administer 1 spray into each nostrildaily, Disp: , Rfl: iron 18 mg tablet, Take by mouth, Disp: , Rfl: loratadine (Claritin) 10 mg tablet, Take 10 mg by mouth daily, Disp: , Rfl: omeprazole (PriLOSEC) 10 mg capsule, Take 10 mg by mouth daily, Disp: , Rfl: vit 35-aogl-noalt-dha 27mg iron- 800 mcg-250 mg capsule, Take by mouth, Disp: , Rfl: No Known Allergies Social History Tobacco Use Smoking status: None Smokeless tobacco: None Substance and Sexual Activity Drug use: None Sexual activity: None Alcohol Use: Not on file History reviewed. No pertinent surgical history. Assessment/Plan Diagnoses and all orders for this visit: Acute nasopharyngitis (Primary) - POCT rapid strep A - POC Influenza A/B, COVID-19 antigen - Throat culture Throat; Future - Influenza A/B, RSV, and COVID-19 PCR Nasopharyngeal; Future , unspecified gestational age Recent Results (from the past 4 hour(s)) POCT rapid strep A Collection Time: 07/16/22 4:41 PM Result Value Ref Range Rapid Strep A, POC Negative POC Influenza A/B, COVID-19 antigen Collection Time: 07/16/22 4:41 PM Result Value Ref Range Inflenza A Ag, POC Negative Negative Influenza B Ag, POC Negative Negative COVID-19 Ag POC Presumptive Negative Presumptive Negative, Invalid Patient Education: Please check with OBGYN or pharmacist prior to taking any qzcw-jlt-oywnixk medications for your symptoms. -You may try: Nasal saline wash, either Neti Pot or Sinus Rinse DAILY or a saline nasal spray 3-4 times a day. -Increase fluid intake: drink 2 liters (2 quarts) of non-caffeinated, non- alcoholic beverages daily, drinking alcohol causes nasal and sinus membranes to swell -Steam inhalation and warm compress to face often help relieve pressure -Avoid allergens and excessively dry heat -Sleep with head of bed elevated to encourage drainage. -Use of a humidifier if environment is heated by dry forced - air system -Avoid smoking, second-hand smoke and air pollutants. -If you are not improving or worsening, or develop facial swelling, in the next 7 days you must RETURN to the clinic, go to your PCP, or Urgent Care/ER to be SEEN and reevaluated. No further prescriptions or refills will be given by phone without another evaluation. Disposition Treatment plan including expectations, follow up, and return precautions discussed with patient/parent, verbalizes understanding. Medication dosage, use, and potential adverse reactions discussed with patient/parent. Advised to follow up with PCP if symptoms do not resolve as expected or sooner if condition worsens. Signs/symptoms warranting ER evaluation reviewed. Patient and/or guardian was given an opportunity to ask questions, questions answered. Collin Solorzano NP E PAINTER documented in this encounter Plan of Treatment Not on file documented as of this encounter Procedures Procedure Name Priority Date/Time Associated Diagnosis Comments POC INFLUENZA A/B, COVID-19 ANTIGEN Routine 07/16/2022 4:41 PM PLATE PAINTER Acute nasopharyngitis POCT RAPID STREP Routine 07/16/2022 4:41 PM PLATE PAINTER Acute nasopharyngitis documented in this encounter Results * Influenza A/B, RSV, and COVID-19 PCR Nasopharyngeal (07/16/2022 4:42 PM PLATE PAINTER) Pathologist [facility] COVID-19 RNA Negative Negative [facility] Influenza A RNA Negative Negative [facility] Influenza B RNA Negative Negative [facility] RSV RNA Negative Negative [facility] Comment: Interpretive data: This test is performed using the [employer] Xpert Xpress CoV-2/Flu/RSV plus assay. This is a multiplex, real-time reverse transcriptase PCR assay intended for the qualitative detection of nucleic acid from SARS-CoV-2, influenza A, influenza B, and respiratory syncytial virus. This assay has been reviewed by the FDA for Emergency Use Authorization (EUA). The performance characteristics have been verified by the performing laboratory. Results must be considered in the clinical context, and a negative result does not rule out infection. Interpretive Data last revised 2021. Nasopharyngeal 07/16/2022 4: 42 PM PLATE PAINTER 07/16/2022 10:46 PM PLATE PAINTER Narrative [facility] - 07/16/2022 11:38 PM PLATE PAINTER Is the Patient experiencing symptoms consistent with COVID?->Yes Date of Symptom Onset->07/13/22 Reason for testing?->Symptomatic us Collin Solorzano NP LAB MICROBIOLOGY - GENERAL RADHIKA MILLER Final Result [facility] [id number] Department [place] [address] * Throat culture Throat (07/16/2022 4:42 PM PLATE PAINTER) Report Final Report: No growth of pathogens. SUZI WOODSON Comment:Testing performed by : [facility], [address] [place]., [address] Throat 07/16/2022 4:42 PM PLATE PAINTER 07/17/2022 2:50 AM PLATE PAINTER Narrative [facility] - 07/18/2022 2:00 PM PLATE PAINTER Testing performed by [facility] Microbiology Laboratory ([phone]). us Collin Solorzano NP LAB [facility]OLOGY - [facility]AL [facility] Final Result [facility] [id number] Department [place] [address] * POC Influenza A/B, COVID-19 antigen (07/16/2022 4:41 PM PLATE PAINTER) Influenza A Ag, POC Negative Negative [facility] Influenza B Ag, POC Negative Negative [facility] COVID-19 Ag POC Presumptive Negative Presumptive Negative, Invalid [facility] Nasal 07/16/2022 4:41 PM PLATE PAINTER us Collin Solorzano NP POINT OF CARE TEST ORDERABLES F inal Result [facility] [address] [place] [address] * POCT rapid strep A (07/16/2022 4:41 PM PLATE PAINTER) Rapid Strep A, POC Negative Swab 07/16/2022 4:41 PM PLATE PAINTER us Collin Solorzano NP POINT OF CARE TEST ORDERABLES F inal Result documented in this encounter Visit Diagnoses Diagnosis Acute nasopharyngitis- Primary Acute nasopharyngitis (common cold) , unspecified gestational age Acute nasopharyngitis Acute nasopharyngitis (common cold) documented in this encounter Historical Medications * This list may reflect changes made after this encounter. calcium acetate,phosphat bind, (PHOSLO) 667 mg tablet Take 1,334 mg by mouth 3 (three) times a day with meals iron 18 mg tablet Take by mouth vit 52-cwti-hcytf-dh a 27mg iron- 800 mcg-250 mg capsule Take by mouth omeprazole (PriLOSEC) 10 mg capsule Take 10 mg by mouth daily loratadine (Claritin) 10 mg tablet Take 10 mg by mouth daily fluticasone propionate (FLONASE) 50 mcg/actuation nasal spray Administer 1 spray into each nostril daily added in this encounter Additional Health Concerns Infection Onset Date Last Indicated Resolved Time COVID: Suspected 07/16/2022 07/16/2022 07/16/2022 4:42 PM PLATE PAINTER documented as of this encounter Care Teams Chef Under Relationship Specialty Start Date End Date No, Physician PCP - General 07/16/22 documented as of this encounter
--- OUTSIDE RECORDS SUMMARY | 2024-08-08 08:03 | XMS_ITS | Encounter Summary ---
Author Organization [facility] Address [address] [place] [address] Care Team Providers Care Nougat Candy Maker Helper Name Role Phone Unavailable Primary Care Provider Unavailabl e Encounter Details Date Type Department Care Team (Late st Contact Info) Description 08/11/2023 External Device Data [facility] ABSTRACTION Provider, Abstract NO ADDRESS ON FILE Social History Tobacco Use Types Packs/Day Years Used Date Smoking Tobacco: Never Assessed Sex and Gender Information Value Date Recorded Sex Assigned at Not on file Gender Identity Not on file Sexual Orientation Not on file documented as of this encounter Plan of Treatment Not on file documented as of this encounter Visit Diagnoses Not on filedocumented in this encounter
--- OUTSIDE RECORDS SUMMARY | 2024-08-08 08:03 | XMS_ITS | Encounter Summary ---
Author Organization [facility] Address [address] [place]: Epic Prelude ADT [place] [address] Care Team Providers Care Machinery Mover Name Role Phone Unavailable Primary Care Provider Unavailabl e Encounter Details Date Type Department Care Team (Latest Contact Info) Description 06/19/2022 Travel Social History Tobacco Use Types Packs/Day Years Used Date Smoking Tobacco: Never Assessed Sex and Gender Information Value Date Recorded Sex Assigned at Not on file Gender Identity Not on file Sexual Orientation Not on file COVID-19 Exposure Response Date Recorded In the last 10 days, have yo u been in contact with someone who was confirmed or suspected to have Coronavirus/COVID-19? No / Unsure 06/19/2022 8:02 AM CDT documented as of this encounter Plan of Treatment Not on file documented as of this encounter Visit Diagnoses Not on filedocumented in this encounter
--- OUTSIDE RECORDS SUMMARY | 2024-08-08 08:03 | XMS_ITS | Encounter Summary ---
Author Organization [facility] Address [address] [place] [address] Care Team Providers Care Telephone Service Representative Name Role Phone Unavailable Primary Care [...]
--- OUTSIDE RECORDS SUMMARY | 2024-08-08 08:03 | XMS_ITS | Encounter Summary ---
Author Organization [facility] Address [address] [place] [address] Care Team Providers Care Ignition Expert Name Role Phone Unavailable Primary Care Provider [...]
--- OUTSIDE RECORDS SUMMARY | 2024-08-08 08:03 | XMS_ITS | Encounter Summary ---
Author Organization [facility] Address [address] [place] [address] Care Team Providers Care Specification Consultant Name Role Phone Unavailable Primary Care Provider Unavailabl e Encounter Details Date Type Department Care Team (Late st Contact Info) Description 09/11/2023 External Device Data [facility] ABSTRACTION Provider, Abstract [...]
--- OUTSIDE RECORDS SUMMARY | 2024-08-08 08:03 | XMS_ITS | Encounter Summary ---
Author Organization [facility] Address [address] [place] [address] Care Team Providers Care Fire Investigation Lieutenant Name Role Phone Unavailable Primary Care Provider Unavailabl e Reason for Visit * Radiology Services (Routine) - Closed Specialty Diagnoses / Procedures Referred By Contac t Referred To Contact Diagnoses Encounter for screening for malformation Procedures US OB 14+ WKS + TV CERV LENGTH US OB 14+ WKS SINGLE GEST CHG US, OB >/= 14 WKS, SNGL FETUS CHG US, UTERUS,TRANSVAGINAL MV ~06/20 Maria Guadalupe Rene MD [address] [address] Referral ID Status Reason Start Date Expiration Date Visits Re quested Visits Authorized [id number] Closed 06/04/2022 07/05/2023 1 1 Encounter Details Date Type Department Care Team (Latest Contact Info) Description 06/19/2022 8:00 AM CDT - 06/19/2022 11:59 PM CDT Hospital Encounter [facility] Maternal and Health [facility] [address] [place] [address] Maria Guadalupe Rene MD [address] [address] Discharge Disposition: Home or Self Care Social History Tobacco Use Types Packs/Day Years [...] Procedure Name Priority Date/Time Associated Diagnosis Comments US OB 14+ WKS + TV CERV LENGTH Routine 06/19/2022 9:08 AM CDT Encounter for screening for malformation documented in this encounter Results * US OB 14+ WKS + TV CERV LENGTH (06/19/2022 9:08 AM CDT) Anatomical Region Laterality Modality Pelvis Ultrasound 06/19/2022 8:12 AM CDT Narrative 06/24/2022 12:48 PM SUPERVISOR LOADING STL BASIC ----- Pat. Name: KIA ESPINOZA Study Date: 06/19/2022 8:12am Pat. NO: [id number] Referring ??MD: MARIA GUADALUPE RENE MD Site: [place] Set Up Operator Tool: Meagan Dixon : 1990 Age: 32 ----- INDICATION ----- Anatomy Survey ? no genetics CODING ----- Diagnoses ? Z3A.19: Weeks of gestation ?Z36.3: Encounter for screening for malformations Procedures ?70919: Ultrasound, uterus, real time with image documentation, and maternal evaluation, ?after first trimester (> or = 14 weeks 0 days), transabdominal approach; single or first gestation ?72619: OB Transvaginal HISTORY ----- OB History ? 1. Para 0 MATERNAL ASSESSMENT ----- Physical Exam ? Weight 62 kg. BMI 23.34 kg/m?? METHOD ----- Transabdominal and transvaginal ultrasound examination ----- [place] . Number of fetuses: 1 DATING ----- Method of dating: based on the LMP LMP on: 01/31/2022 Cycle: regular cycle GA by LMP 19 w + 6 d CAROLYNE by LMP: 11/07/2022 Ultrasound examination on: 06/19/2022 GA by U/S based upon: AC, BPD, EFW, Femur, HC GA by U/S 19 w + 1 d CAROLYNE by U/S: 11/12/2022 Assigned: based on the LMP, selected on 06/19/2022 Assigned GA 19 w + 6 d Assigned CAROLYNE: 11/07/2022 BIOMETRY ----- BPD ?44.5 ? mm ? 19w 3d ? 33% ?Hadlock OFD ?55.8 ? mm ? 19w 5d ? 44% ?Dirk HC ? 159.8 ?mm ? 18w 6d ? 6% ?Hadlock Cerebellum tr ?19.0 ? mm ? 19w 1d ? 28% ?Tenorio Nuchal fold ?4.1 ?mm AC ? 142.8 ?mm ? 19w 4d ? 37% ?Hadlock Femur ?28.4 ? mm ? 18w 5d ? 10% ?Hadlock Humerus ?27.7 ? mm ? 18w 6d ? 20% ?Dirk HC / AC ?1.12 ?18% ? Nicolaides Weight Calculation: EFW ?278 ? g ?19w 1d ?15% ?Hadlock EFW (lb,oz) ?0 lb 10 ? oz EFW by ?Hadlock ([id number]) Head / Face / Neck Biometry: Cephalic index ? 0.80 ? 60% ?Nicolaides Brooch Maker Novelty ? 5.5 ? mm CM ? 2.7 ? mm ? 2% ?Nicolaides Extremities / Bony Struc Biometry: FL / BPD ? 0.64 ?7% ?Hadlock FL / HC ?0.18 ?29% ?Hadlock FL / AC ?0.20 ?8% ?Hadlock GENERAL EVALUATION ----- Cardiac activity present. FHR 148 bpm. movements: visualized. Presentation: Variable Placenta: Placental site: posterior Umbilical cord: Cord vessels: 3 vessel cord. Insertion site: placental insertion: normal Amniotic fluid: Amount of AF: normal amount. MVP 4.6 cm ANATOMY ----- The following structures appear normal: Head / Neck ? Cranium. Lateral ventricles. Choroid plexus. Midline falx. Cavum septi pellucidi. Cerebellum. Cisterna ?magna. ?Nuchal fold. Face ?Lips. Profile. Nose. Palate. Orbits. Heart / Thorax ?4-chamber view. RVOT view. LVOT view. 3-vessel view. 8-fpvqhq-xpcdijc view. Situs. Aortic arch view. ?Ductal arch view. Superior vena cava. Inferior vena cava. High short axis view. Cardiac rhythm. ?Diaphragm. Abdomen ? Abdominal wall. Stomach. Kidneys. Bladder. Spine ? Cervical spine. Thoracic spine. Lumbar spine. Sacral spine. Extremities / ? Arms. Right hand. Left hand. Legs. Right foot. Left foot. Skeleton Abdomen other: duplicated renal arteries noted MATERNAL STRUCTURES ----- Cervix ?Visualized ?Approach - Transabdominal: Cervical length 42.0 mm Right Ovary ? Normal ?Size 22 mm x 15 mm x 15 mm. Vol 2.6 cm?? Left Ovary ?Normal ?Size 29 mm x 22 mm x 16 mm. Vol 5.4 cm?? GROWTH OVERVIEW ----- Exam date ?GA ?BPD (mm) ? HC (mm) ? AC (mm) ? FL (mm) ?HL (mm) ?EFW (g) 06/19/2022 ?19w 6d ?44.5 ?33% ?159.8 ? 6% ?142.8 ?37% ?28.4 ?10% ?27.7 ?20% ?278 ? 15% COMMENT ----- Patient's name and date of were confirmed by the portrait studio photographer prior to the exam jordyn Acevedo was present for the Transvaginal portion of this exam IMPRESSION ----- 1. Single living fetus with a gestational age of 19w 6d based on the reported clinical dates. 2. Current growth parameters are consistent with the stated EDC. The fetus is appropriate for gestational age in size at the 15% (278 g). 3. Basic anatomic survey is unremarkable. No gross structural abnormalities noted. No sonographic markers for aneuploidy noted. 4. Amniotic fluid volume is normal for gestational age. 5. The cervical length is within normal range for gestational age. 6. The right and left ovary appear normal in size and shape. 7. Placenta is posterior . No previa/not low-lying. Recommendations: - Further ultrasounds based on clinical indication. - Consider interval third trimester growth and anatomy at 32 weeks. Thank you for allowing us to participate in the care of this patient. ADDENDUM ----- re-trigger order Procedure Note Alesha Galarza MD - 06/24/2022 STL BASIC ----- Pat. Name:Erin ESPINOZA Date:06/19/2022 8:12am Pat. NO: [id number] MD:MARIA GUADALUPE RENE MD [facility]:Meagan Dixon :1990Age:32 ----- INDICATION ----- Anatomy Survey no genetics CODING ----- Diagnoses Z3A.19: Weeks of gestation Z36.3: Encounter for screening formalformations Procedures 99358: Ultrasound, uterus, real time withimage documentation, and maternal evaluation, after first trimester (> or = 14 weeks 0 days),transabdominal approach; single or first gestation 06679: OB Transvaginal HISTORY ----- OB History 1. Para 0 MATERNAL ASSESSMENT ----- Physical Exam Weight 62 kg. BMI 23.34 kg/m?? METHOD ----- Transabdominal and transvaginal ultrasound examination ----- [place] . Number of fetuses: 1 DATING ----- Method of dating:based on the LMP LMP on:01/31/2022 Cycle:regular cycle GA by LMP19 w + 6 d CAROLYNE by LMP:11/07/2022 Ultrasound examination on:06/19/2022 GA by U/S based upon:AC, BPD, EFW, Femur, HC GA by U/S19 w + 1 d CAROLYEN by U/S:11/12/2022 Assigned:based on the LMP, selected on 06/19/2022 Assigned GA19 w + 6 d Assigned CAROLYNE:11/07/2022 BIOMETRY ----- BPD 44.5 mm 19w 3d33% Hadlock OFD 55.8 mm 19w 5d44% Dirk HC 159.8 mm 18w 6d6% Hadlock Cerebellum tr 19.0 mm 19w 1d28% Tenorio Nuchal fold 4.1 mm AC 142.8 mm 19w 4d37% Hadlock Femur 28.4 mm 18w 5d10% Hadlock Humerus 27.7 mm 18w 6d20% Dirk HC / AC 1.12 18%Nicolaides Weight Calculation: EFW 278 g 19w 1d 15%Hadlock EFW (lb,oz) 0 lb 10 oz EFW by Hadlock ([id number]) Head / Face / Neck Biometry: Cephalic index 0.80 60%Nicolaides Brooch Maker Novelty 5.5 mm CM 2.7 mm 2%Nicolaides Extremities / Bony Struc Biometry: FL / BPD 0.64 7%Hadlock FL / HC 0.18 29%Hadlock FL / AC 0.20 8%Hadlock GENERAL EVALUATION ----- Cardiac activity present. FHR 148 bpm. movements: visualized.Presentation: Variable Placenta: Placental site: posterior Umbilical cord: Cord vessels: 3 vessel cord. Insertion site: placentalinsertion: normal Amniotic fluid: Amount of AF: normal amount. MVP 4.6 cm ANATOMY ----- The following structures appear normal: Head / Neck Cranium. Lateral ventricles. Choroid plexus.Midline falx. Cavum septi pellucidi. Cerebellum. Cisterna magna. Nuchal fold. Face Lips. Profile. Nose. Palate. Orbits. Heart / Thorax 4-chamber view. RVOT view. LVOT view. 3-vesselview. 7-mrngka-tgwavop view. Situs. Aortic arch view. Ductal arch view. Superior vena cava. Inferiorvena cava. High short axis view. Cardiac rhythm. Diaphragm. Abdomen Abdominal wall. Stomach. Kidneys. Bladder. Spine Cervical spine. Thoracic spine. Lumbar spine.Sacral spine. Extremities / Arms. Right hand. Left hand. Legs. Right foot.Left foot. Skeleton Abdomen other: duplicated renal arteries noted MATERNAL STRUCTURES ----- Cervix Visualized Approach - Transabdominal: Cervical length 42.0mm Right Ovary Normal Size 22 mm x 15 mm x 15 mm. Vol 2.6 cm?? Left Ovary Normal Size 29 mm x 22 mm x 16 mm. Vol 5.4 cm?? GROWTH OVERVIEW ----- Exam date GA BPD (mm) HC (mm) AC (mm) FL(mm) HL (mm) EFW (g) 06/19/2022 19w 6d 44.5 33% 159.8 6% 142.8 37% 28.410% 27.7 20% 278 15% COMMENT ----- Patient's name and date of were confirmed by the portrait studio photographer priorto the exam jordyn Acevedo was present for the Transvaginal portion of this exam IMPRESSION ----- 1. Single living fetus with a gestational age of 19w 6d based on thereported clinical dates. 2. Current growth parameters are consistent with the stated EDC. The fetusis appropriate for gestational age in size at the 15% (278 g). 3. Basic anatomic survey is unremarkable. No gross structuralabnormalities noted. No sonographic markers for aneuploidy noted. 4. Amniotic fluid volume is normal for gestational age. 5. The cervical length is within normal range for gestational age. 6. The right and left ovary appear normal in size and shape. 7. Placenta is posterior . No previa/not low-lying. Recommendations: - Further ultrasounds based on clinical indication. - Consider interval third trimester growth and anatomy at 32weeks. Thank you for allowing us to participate in the care of this patient. ADDENDUM ----- re-trigger order Maria Guadalupe Rene MD US ORDERABLES documented in this encounter Visit Diagnoses Diagnosis Encounter for screening for malformation documented in this encounter
--- OUTSIDE RECORDS SUMMARY | 2024-08-08 08:03 | XMS_ITS | Encounter Summary ---
Author Organization [facility] Address [address] [place] [address] Care Team Providers Care Parcel Post Clerk Name Role Phone No, Physician Primary Care Provider [phone] Encounter Details Date Type Department Care Team (Latest Contact Info) Description 07/16/2022 4:42 PM WELL DRILL OPERATOR ROTARY DRILL - 07/16/2022 11:59 PM WELL DRILL OPERATOR ROTARY DRILL Hospital Encounter [address] [phone] Acute nasopharyngitis Discharge Disposition: Discharge to home or self care Social History Tobacco Use Types Packs/Day Years Used Date Smoking Tobacco: Never Assessed Comments Yes Sex and Gender Information Value Date Recorded Sex Assigned at Not on file Legal Sex Female 1:43 PM WELL DRILL OPERATOR ROTARY DRILL Gender Identity Not on file Sexual Orientation Not on file documented as of this encounter Medications at Time of Discharge calcium acetate,phosphat bind, (PHOSLO) 667 mg tablet Take 1,334 mg by mouth 3 (three) times a day with meals fluticasone propionate (FLONASE) 50 mcg/actuation nasal spray Administer 1 spray into each nostril daily iron 18 mg tablet Take by mouth loratadine (Claritin) 10 mg tablet Take 10 mg by mouth daily omeprazole (PriLOSEC) 10 mg capsule Take 10 mg by mouth daily vit 20-skhh-dzedf-dh a 27mg iron- 800 mcg-250 mg capsule Take by mouth documented as of this encounter Discharge Disposition Disposition Code Departure Means Destination Discharge to home or self care documented in this encounter Miscellaneous Notes * Result Encounter Note - Gill Linares PA - 07/16/2022 11:59 PM WELL DRILL OPERATOR ROTARY DRILL Please notify patient of negative PCR test for COVID, Influenza A/B, and RSR. Please have patient follow up with pcp or return to [facility] if they continue to have symptoms past 10-14 days. DRILL OPERATOR ROTARY DRILL * Result Encounter Note - Darlyn Mackay NP - 07/16/2022 11:59 PM WELL DRILL OPERATOR ROTARY DRILL Please alert patient of negative strep culture. Patient should continue tylenol/ibuprofen as directed for discomfort and f/u with PCP if symptoms persist. DRILL OPERATOR ROTARY DRILL * Result Encounter Note - Jean Paul Nunn MA - 07/16/2022 11:59 PM CST Results given DRILL OPERATOR ROTARY DRILL documented in this encounter Plan of Treatment Not on file documented as of this encounter Procedures Procedure Name Priority Date/Time Associated Diagnosis Comments INFLUENZA A/B, RSV, AND COVID-19 PCR Routine 07/16/2022 4:42 PM WELL DRILL OPERATOR ROTARY DRILL Acute nasopharyngitis THROAT CULTURE Routine 07/16/2022 4:42 PM WELL DRILL OPERATOR ROTARY DRILL Acute nasopharyngitis documented in this encounter Results * Throat culture Throat (07/16/2022 4:42 PM WELL DRILL OPERATOR ROTARY DRILL) Report Final Report: No growth of pathogens. SUZI WOODSON Comment:Testing performed by : [facility], [address], [place]., [address] Throat 07/16/2022 4:42 PM WELL DRILL OPERATOR ROTARY DRILL 07/17/2022 2:50 AM WELL DRILL OPERATOR ROTARY DRILL Narrative SUZI WOODSON - 07/18/2022 2:00 PM WELL DRILL OPERATOR ROTARY DRILL Testing performed by [facility] Microbiology Laboratory ([phone]). Collin Solorzano NP LAB MICROBIOLOGY - GENERAL RADHIKA MILLER Final Result Performing Organization Address [facility] Co de Phone Number SUZI WOODSON [phone] [place] [address] * Influenza A/B, RSV, and COVID-19 PCR Nasopharyngeal (07/16/2022 4:42 PM WELL DRILL OPERATOR ROTARY DRILL) Pathologist [facility] [place] COVID-19 RNA Negative Negative [facility] Influenza A RNA Negative Negative [facility] Influenza B RNA Negative Negative [facility] RSV RNA Negative Negative [facility] Comment: Interpretive data: This test is performed using the [employer] Xpert Xpress CoV-2/Flu/RSV plus assay. This is [...] revised 2021. Nasopharyngeal 07/16/2022 4: 42 PM WELL DRILL OPERATOR ROTARY DRILL 07/16/2022 10:46 PM WELL DRILL OPERATOR ROTARY DRILL Narrative [facility] - 07/16/2022 11:38 PM WELL DRILL OPERATOR ROTARY DRILL Is the Patient experiencing symptoms consistent with COVID?->Yes Date of Symptom Onset->07/13/22 Reason for testing?->Symptomatic Collin Solorzano NP LAB MICROBIOLOGY - [facility] RADHIKA MILLER Final Result Performing Organization Address [facility] Co de Phone Number SUZI WOODSON [phone] [address] [place] [address] documented in this encounter Visit Diagnoses Diagnosis Acute nasopharyngitis Acute nasopharyngitis (common cold) documented in this encounter Additional Health Concerns Infection Onset Date Last Indicated Resolved Time COVID: Suspected 07/16/2022 07/16/2022 07/16/2022 4:42 PM WELL DRILL OPERATOR ROTARY DRILL COVID: Suspected 07/16/2022 07/16/2022 07/16/2022 11:39 PM WELL DRILL OPERATOR ROTARY DRILL documented as of this encounter Care Teams Parcel Post Clerk Relationship Specialty Start Date End Date No, Physician PCP - General 07/16/22 documented as of this encounter
--- OUTSIDE RECORDS SUMMARY | 2024-08-08 08:03 | XMS_ITS | Referral Summary ---
Author Organization [facility] [address] Address [address] [place] [address] Care Team Providers Care Transfer Iron Operator Name Role Phone No, Physician Primary Care Provider [phone] Allergies No known active allergies Medications fluticasone propionate (FLONASE) 50 mcg/actuation nasal spray Administer 1 spray into each nostril daily Active loratadine (Claritin) 10 mg tablet Take 10 mg by mouth daily Active omeprazole (PriLOSEC) 10 mg capsule Take 10 mg by mouth daily Active vit 94-iqrl-jleyb-d mayers 27mg iron- 800 mcg-250 mg capsule [...] on file Legal Sex Female 1:43 PM DEPARTMENT STORE MANAGER Gender Identity Not on file Sexual Orientation Not on file Last Filed Vital Signs Vital Sign Reading Time Taken Comments Blood Pressure 132/84 07/16/2022 4:08 PM DEPARTMENT STORE MANAGER Pulse 80 07/16/2022 4:08 PM DEPARTMENT STORE MANAGER Temperature 36.6 ??C (97.8 ??F) 07/16/2022 4:08 PM CS T Respiratory Rate - - Oxygen Saturation 98% 07/16/2022 4:08 PM DEPARTMENT STORE MANAGER Inhaled Oxygen Concentration - - Weight 65.8 kg (145 lb 1.6 oz) 07/16/2022 4:08 P M DEPARTMENT STORE MANAGER Height - - Body Mass Index - - Plan of Treatment Not on file Insurance [employer] SIG [id number] [employer] SIG [id number] Care Teams Transfer Iron Operator Relationship Specialty Start Date End Date No, Physician PCP - General 07/16/22
--- OUTSIDE RECORDS SUMMARY | 2024-08-08 08:03 | XMS_ITS | Encounter Summary ---
Author Organization [facility] Address [address] [place] [address] Care Team Providers Care Sign Hanger Name Role Phone Unavailable Primary Care Provider Unavailabl e Reason for Referral * Radiology Services (Routine) - Closed Specialty Diagnoses / Procedures Referred By Contac t Referred To Contact Diagnoses Encounter for ultrasound to assess growth Uterine size date discrepancy Procedures US OB FOLLOW UP PER FETUS Maxim Marx MD [address] [address] Referral ID Status Reason Start Date Expiration Date Visits Re quested Visits Authorized [id number] Closed 09/18/2022 10/19/2023 1 1 ROL SYSTEMS SPECIALIST Reason for Visit * Radiology Services (Routine) - Closed Specialty Diagnoses / Procedures Referred By Contac t Referred To Contact Diagnoses Encounter for ultrasound to assess growth Uterine size date discrepancy Procedures US OB FOLLOW UP PER FETUS Maxim Marx MD [address] [address] Referral ID Status Reason Start Date Expiration Date Visits Re quested Visits Authorized [id number] Closed 09/18/2022 10/19/2023 1 1 Encounter Details Date Type Department Care Team (Latest Contact Info) Description 10/09/2022 7:28 AM CONTROL SYSTEMS SPECIALIST - 10/09/2022 11:59 PM CONTROL SYSTEMS SPECIALIST Hospital Encounter [facility] [address] [place] [id number] Maxim Hudson MD [address] [address] Discharge Disposition: Home or Self Care Social [...] suspected to have Coronavirus/COVID-19? No / Unsure 10/03/2022 5:56 PM CONTROL SYSTEMS SPECIALIST documented as of this encounter Plan of Treatment Not on file documented as of this encounter Procedures Procedure Name Priority Date/Time Associated Diagnosis Comments US OB FOLLOW UP PER FETUS Routine 10/09/2022 7:53 AM CONTROL SYSTEMS SPECIALIST Encounter for ultrasound to assess growth Uterine size date discrepancy documented in this encounter Results * US OB FOLLOW UP PER FETUS (10/09/2022 7:53 AM CONTROL SYSTEMS SPECIALIST) Anatomical Region Laterality Modality Pelvis Ultrasound 10/09/2022 8:33 AM CONTROL SYSTEMS SPECIALIST Narrative 10/09/2022 8:27 AM CONTROL SYSTEMS SPECIALIST STL FOLLOW UP ----- Pat. Name: KIA ESPINOZA Study Date: 10/09/2022 8:33am Pat. NO: [id number] Referring ??: MAXIM HUDSON MD Site: [facility] Classroom: Meagan Dixon : 1990 Age: 32 ----- INDICATION ----- Screening Follow-Up CODING ----- Diagnoses ? Z3A.35: Weeks of gestation ?Z36.2: Encounter for other screening follow-up Procedures ?32369: Ultrasound, uterus, real time with image documentation, follow up, transabdominal ?approach per fetus HISTORY ----- OB History ? 1. Para 0 MATERNAL ASSESSMENT ----- Physical Exam ? Weight 62 kg. BMI 23.34 kg/m?? METHOD ----- Transabdominal ultrasound examination ----- Tidwell . Number of fetuses: 1 DATING ----- LMP on: 01/31/2022 Cycle: regular cycle GA by LMP 35 w + 6 d CAR[place] by LMP: 11/07/2022 GA by prior assessment 35 w + 6 d [place] by prior assessment: 11/07/2022 Ultrasound examination on: 10/09/2022 GA by U/S based upon: AC, BPD, EFW, Femur, HC GA by U/S 36 w + 3 d [place] by U/S: 11/03/2022 Method of dating: Restore dating from previous exam Assigned: based on the LMP, selected on 06/19/2022 Assigned GA 35 w + 6 d Assigned CAROLYNE: 11/07/2022 BIOMETRY ----- BPD ?91.2 ? mm ?37w 0d ?85% ?Hadlock OFD ?116.5 ?mm ?-/- ?97% ?Dirk HC ? 331.7 ?mm ?37w 6d ?68% ?Hadlock AC ? 334.5 ?mm ?37w 2d ?92% ?Hadlock Femur ?64.7 ? mm ?33w 3d ?3% ?Hadlock HC / AC ?0.99 ? 30% ?Nicolaides Weight Calculation: EFW ? 2,929 ? g ? 36w 4d ?66% ?Hadlock EFW (lb,oz) ? 6 lb 7 ?oz EFW by ?Hadlock ([id number]) Head / Face / Neck Biometry: Cephalic index ?0.78 ?20% ?Nicolaides Extremities / Bony Struc Biometry: FL / BPD ?0.71 FL / HC ? 0.20 FL / AC ? 0.19 GENERAL EVALUATION ----- Cardiac activity present. FHR 147 bpm. movements: present. Presentation: cephalic Placenta: Placental site: posterior, left Umbilical cord: Cord vessels: 3 vessel cord. Insertion site: placental insertion: normal Amniotic fluid: Amount of AF: normal amount. MVP 6.2 cm. ROSELYN 19.3 cm. Q1 6.2 cm, Q2 4.1 cm, Q3 5.3 cm, Q4 3.8 cm ANATOMY ----- The following structures appear normal: Head / Neck ? Cranium. Lateral ventricles. Choroid plexus. Midline falx. Cerebellum. Cisterna magna. Face ?Profile. Heart / Thorax ?4-chamber view. RVOT view. LVOT view. 3-vessel view. ?Diaphragm. Abdomen ? Stomach. Kidneys. Bladder. GROWTH OVERVIEW ----- Exam date ? GA ?BPD (mm) ? HC (mm) ?AC (mm) ? FL (mm) ?HL (mm) ?EFW (g) 06/19/2022 ? 19w 6d ?44.5 ?33% ?159.8 ? 6% ? 142.8 ?37% ?28.4 ?10% ?27.7 ?20% ?278 ? 15% 10/09/2022 ?35w 6d ?91.2 ?85% ?331.7 ? 68% ?334.5 ?92% ?64.7 ?3% ? 66% COMMENT ----- Patient's name and date of were verified by the ticket maker prior to the exam IMPRESSION ----- Tidwell @ 35w 6d referred to check growth. - The biometry is consistent with dates with the EFW at the 66% percentile. - Amniotic fluid indices are within normal limits. - Limited anatomy is unremarkable. Further ultrasounds may be scheduled as clinically indicated. Thank you for allowing us to participate in the care of this patient. Procedure Note Leanna Walker MD - 10/09/2022 STL FOLLOW UP ----- Mliey. Name:Erin ESPINOZA Date:10/09/2022 8:33am Pat. NO: [id number] MD:MAXIM HUDSON MD [facility] :1990Age:32 ----- INDICATION ----- Screening Follow-Up CODING ----- Diagnoses Z3A.35: Weeks of gestation Z36.2: Encounter for other screeningfollow-up Procedures [id number]: Ultrasound, uterus, real time withimage documentation, follow up, transabdominal approach per fetus HISTORY ----- OB History 1. Para 0 MATERNAL ASSESSMENT ----- Physical Exam Weight 62 kg. BMI 23.34 kg/m?? METHOD ----- Transabdominal ultrasound examination ----- Tidwell . Number of fetuses: 1 DATING ----- LMP on:01/31/2022 Cycle:regular cycle GA by LMP35 w + 6 d CAR[place] by LMP:11/07/2022 GA by prior [id number] w + 6 d [place] by prior assessment:11/07/2022 Ultrasound examination on:10/09/2022 GA by U/S based upon:AC, BPD, EFW, Femur, HC GA by U/S36 w + 3 d CAR[place] by U/S:11/03/2022 Method of dating:Restore dating from previous exam Assigned:based on the LMP, selected on 06/19/2022 Assigned GA35 w + 6 d Assigned CAROLYNE:11/07/2022 BIOMETRY ----- BPD 91.2 mm 37w 0d 85%Hadlock OFD 116.5 mm -/- 97%Dirk HC 331.7 mm 37w 6d 68%Hadlock AC 334.5 mm 37w 2d 92%Hadlock Femur 64.7 mm 33w 3d 3%Hadlock HC / AC 0.99 30%Nicolaides Weight Calculation: EFW 2,929 g 36w 4d66% Hadlock EFW (lb,oz) 6 lb 7 oz EFW by Hadlock ([id number]) Head / Face / Neck Biometry: Cephalic index 0.78 20%Nicolaides Extremities / Bony Struc Biometry: FL / BPD 0.71 FL / HC 0.20 FL / AC 0.19 GENERAL EVALUATION ----- Cardiac activity present. FHR 147 bpm. movements: present.Presentation: cephalic Placenta: Placental site: posterior, left Umbilical cord: Cord vessels: 3 vessel cord. Insertion site: placentalinsertion: normal Amniotic fluid: Amount of AF: normal amount. MVP 6.2 cm. ROSELYN 19.3 cm. Q16.2 cm, Q2 4.1 cm, Q3 5.3 cm, Q4 3.8 cm ANATOMY ----- The following structures appear normal: Head / Neck Cranium. Lateral ventricles. Choroid plexus.Midline falx. Cerebellum. Cisterna magna. Face Profile. Heart / Thorax 4-chamber view. RVOT view. LVOT view. 3-vesselview. Diaphragm. Abdomen Stomach. Kidneys. Bladder. GROWTH OVERVIEW ----- Exam date GA BPD (mm) HC (mm) AC (mm) FL(mm) HL (mm) EFW (g) 06/19/2022 19w 6d 44.5 33% 159.8 6% 142.8 37%28.4 10% 27.7 20% 278 15% 10/09/2022 35w 6d 91.2 85% 331.7 68% 334.5 92%64.7 3% 2,929 66% COMMENT ----- Patient's name and date of were verified by the ticket maker prior tothe exam IMPRESSION ----- Tidwell @ 35w 6d referred to check growth. - The biometry is consistent with dates with the EFW at the 66%percentile. - Amniotic fluid indices are within normal limits. - Limited anatomy is unremarkable. Further ultrasounds may be scheduled as clinically indicated. Thank you for allowing us to participate in the care of this patient. Maxim Hudson MD US ORDERABLES documented in this encounter Visit Diagnoses Diagnosis Encounter for ultrasound to assess growth Uterine size date discrepancy Uterine size date discrepancy, antepartum condition or complication documented in this encounter
--- OUTSIDE RECORDS SUMMARY | 2024-08-08 08:03 | XMS_ITS | Encounter Summary ---
Author Organization [facility] Address [address] [place] [address] Care Team Providers Care Health Care Recruiter Name Role Phone Unavailable Primary Care Provider Unavailabl e Encounter Details Date Type Department Care Team (Late st Contact Info) Description 09/12/2023 External Device Data STL ABSTRACTION Provider, Abstract [...]
--- OUTSIDE RECORDS SUMMARY | 2024-08-08 08:03 | XMS_ITS | Encounter Summary ---
Author Organization [facility] Address [address] [place] [address] Care Team Providers Care Operating Room Manager Name Role Phone No, Physician Primary Care Provider [phone] Encounter Details Date Type Department Care Team (Late st Contact Info) Description 07/17/2022 Telephone [facility] Outpatient Center [address] [address] Gill Linares PA [address] [place] [address] [address] [place] [address] Social History Tobacco Use Types Packs/Day Years Used Date Smoking Tobacco: Never Assessed Comments Yes Sex and Gender Information Value Date Recorded Sex Assigned at Not on file Legal Sex Female 1:43 PM SAMPLE DISTRIBUTOR Gender Identity Not on file Sexual Orientation Not on file documented as of this encounter Miscellaneous Notes * Telephone Encounter - Natasha Peraza MA - 07/17/2022 5:30 PM CST Pt notified of results and voiced understanding LE DISTRIBUTOR * Telephone Encounter - Natasha Peraza MA - 07/17/2022 5:30 PM CST ----- Message from SHARLA Pelaez sent at 07/17/2022 8:09 AM SAMPLE DISTRIBUTOR ----- Please notify patient of negative PCR test for COVID, Influenza A/B, and RSR. Please have patient follow up with pcp or return to [facility] if they continue to have symptoms past 10-14 days. LE DISTRIBUTOR documented in this encounter Plan of Treatment Not on file documented as of this encounter Visit Diagnoses Not on filedocumented in this encounter Care Teams Operating Room Manager Relationship Specialty Start Date End Date No, Physician PCP - General 07/16/22 documented as of this encounter
--- OUTSIDE RECORDS SUMMARY | 2024-08-08 08:03 | XMS_ITS | Clinical Summary ---
Author Organization [facility] Address [address] [place] [address] Phone Care Team Providers Care Director Telecommunications Name Role Phone Unavailable Primary Care Provider Unavailabl e Social History Tobacco Use Types Packs/Day Years Used Date Smoking Tobacco: Never Assessed Sex and Gender Information Value Date Recorded Sex Assigned at Not on file Gender Identity Not on file Sexual Orientation Not on file Plan of Treatment Health Maintenance Due Date Last Done Comments DTAP/TDAP/TD VACCINES (1 - Tdap) 2008 HEPATITIS B VACCINES (1 of 3 - 19+ 3-dose series) 2008 CERVICAL CANCER SCREENING 2019 INFLUENZA VACCINE (#1) 2024 COVID-19 Vaccine (3 - 2023-2 5 season) 2024 11/23/2020, 10/26/2020 HPV VACCINES Aged Out No longer eligi ble based on patient's age to complete this topic PNEUMOCOCCAL VACCINE 0-64 YEARS Aged Out No longer eligible b ased on patient's age to complete this topic
--- OUTSIDE RECORDS SUMMARY | 2024-08-08 08:03 | XMS_ITS | Encounter Summary ---
Author Organization [facility] Address [address] [place]olan: Epic Prelude ADT JERRICA JENKINS [address] Care Team Providers Care Cab Driver Name Role Phone Unavailable Primary Care Provider Unavailabl e Encounter Details Date Type Department Care Team (Latest Contact Info) Description 10/03/2022 Travel Social History Tobacco Use Types Packs/Day [...] Coronavirus/COVID-19? No / Unsure 10/03/2022 5:56 PM MRI SPECIAL PROCEDURES TECHNOLOGIST documented as of this encounter Plan of Treatment Not on file documented as of this encounter Visit Diagnoses Not on filedocumented in this encounter
--- OUTSIDE RECORDS SUMMARY | 2024-08-08 08:03 | XMS_ITS | Encounter Summary ---
Author Organization [facility] Address [address] [place] [address] Care Team Providers Care Hydrochloric Manufacturing Supervisor Name Role Phone Unavailable Primary Care Provider Unavailabl e Encounter Details Date Type Department Care Team (Late st Contact Info) Description 07/29/2023 External Device Data STL ABSTRACTION Provider, Abstract [...]
--- OUTSIDE RECORDS SUMMARY | 2024-08-08 08:03 | XMS_ITS | Encounter Summary ---
Author Organization [facility] Address [address] [place] [address] Care Team Providers Care Steam Hand Name Role Phone Unavailable Primary Care Provider Unavailabl e Encounter Details Date Type Department Care Team (Late st Contact Info) Description 10/06/2023 External Device Data STL ABSTRACTION Provider, Abstract [...]
== END 2024-08-01 09:34 | disposition home or self-care (01) ==
LOC: ANHGOSHLAB 09:34
PROVIDERS: PCP Family Medicine; Visit Provider Family Medicine
DX: R74.01 Elevation of levels of liver transaminase levels (principal)
CPT/HCPCS: 36415; 80053

== ENCOUNTER 2025-03-16 10:03 | Outpatient (CLI) | payer OTHER, SELFPAY ==
--- OUTSIDE RECORDS SUMMARY | 2025-03-16 10:13 | XMS_ITS | Referral Summary ---
Author Organization [facility] [address] Address [address] [place] [address] Care Team Providers Care Refrigeration Supervisor Name Role Phone No, Physician Primary Care Provider [phone] Allergies No known active allergies Medications fluticasone propionate (FLONASE) 50 mcg/actuation nasal spray Administer 1 spray into each nostril daily Active loratadine (Claritin) 10 mg tablet Take 10 mg by mouth daily Active omeprazole (PriLOSEC) 10 mg capsule Take 10 mg by mouth daily Active vit 56-cxhl-wcrai-d mayers 27mg iron- 800 mcg-250 mg capsule [...] on file Legal Sex Female 1:43 PM MEN'S DESIGNER Gender Identity Not on file Sexual Orientation Not on file Last Filed Vital Signs Vital Sign Reading Time Taken Comments Blood Pressure 132/84 07/16/2022 4:08 PM MEN'S DESIGNER Pulse 80 07/16/2022 4:08 PM MEN'S DESIGNER Temperature 36.6 C (97.8 F) 07/16/2022 4:08 PM MEN'S DESIGNER Respiratory Rate - - Oxygen Saturation 98% 07/16/2022 4:08 PM MEN'S DESIGNER Inhaled Oxygen Concentration - - Weight 65.8 kg (145 lb 1.6 oz) 07/16/2022 4:08 P M MEN'S DESIGNER Height - - Body Mass Index - - Plan of Treatment Not on file Insurance AETNA SIG [id number] COMMERCIAL GENERIC [employer] [place] [id number] Care Teams Refrigeration Supervisor Relationship Specialty Start Date End Date No, Physician PCP - General 07/16/22
--- OUTSIDE RECORDS SUMMARY | 2025-03-16 10:13 | XMS_ITS | Clinical Summary ---
Author Organization [facility] Address [address] [place] [address] Phone Care Team Providers Care Inspection Clerk Name Role Phone Unavailable Primary Care Provider Unavailabl e Social History Tobacco Use Types Packs/Day Years Used Date Smoking Tobacco: Never Assessed Comments Unknown Sex and Gender Information Value Date Recorded Sex Assigned at Not on file Legal Sex Female 8:01 AM CDT Gender Identity Not on file Sexual Orientation Not on file Plan of Treatment Health Maintenance Due Date Last Done Comments HPV VACCINES (1 - 3-dose series) 2004 DTAP/TDAP/TD VACCINES (1 - Tdap) 2008 HEPATITIS B VACCINES (1 of 3 - 19+ 3-dose series) 2008 HPV/Cotest (21-29) 2010 CERVICAL CANCER SCREENING 2019 HPV/Cotest (30-65) 2019 PAP SMEAR 2019 COVID-19 Vaccine (2023- season) 04/17/202404/2021, 10/26/2020 INFLUENZA VACCINE (#1) 2025 Insurance [employer] PPO
--- OUTSIDE RECORDS SUMMARY | 2025-03-16 10:13 | XMS_ITS | Clinical Summary ---
Author Organization [facility] [address] Address [address] [place] [address] Care Team Providers Care Interactive Media Marketing Strategist Name Role Phone No, Physician Primary Care Provider [phone] Allergies No known active allergies Medications fluticasone propionate (FLONASE) 50 mcg/actuation nasal spray Administer 1 spray into each nostril daily Active loratadine (Claritin) 10 mg tablet Take 10 mg by mouth daily Active omeprazole (PriLOSEC) 10 mg capsule Take 10 mg by mouth daily Active vit 57-ozfd-lsvzx-d mayers 27mg iron- 800 mcg-250 mg capsule [...] on file Legal Sex Female 1:43 PM INTERACTIVE DESIGNER Gender Identity Not on file Sexual Orientation Not on file Obstetrics History Para Term AB IAB SAB Ectopic Multiple Livin g Live Births 1 Date Outcome GA Total Labor Labor/2nd/3rd Weight Sex Type Anes PTL Sarita A1 A5 Name Clin Last Filed Vital Signs Vital Sign Reading Time Taken Comments Blood Pressure 132/84 07/16/2022 4:08 PM INTERACTIVE DESIGNER Pulse 80 07/16/2022 4:08 PM INTERACTIVE DESIGNER Temperature 36.6 C (97.8 F) 07/16/2022 4:08 PM INTERACTIVE DESIGNER Respiratory Rate - - Oxygen Saturation 98% 07/16/2022 4:08 PM INTERACTIVE DESIGNER Inhaled Oxygen Concentration - - Weight 65.8 kg (145 lb 1.6 oz) 07/16/2022 4:08 P M INTERACTIVE DESIGNER Height - - Body Mass Index - - Plan of Treatment Health Maintenance Due Date Last Done Comments Cervical Cancer Screening 1989 Depression Screening 1989 Hepatitis C Screening 1989 DTaP/Tdap/Td Vaccine (1 - Tdap) 2000 Varicella Vaccines (1 of 2 - 13+ 2-dose series) 2002 Hepatitis B Screening 2007 Regular Well Visit/Exam 18-64 2007 HPV Vaccines (1 - 3-dose SCD M series) 2016 Covid-19 Vaccine (2023-2 5 season) 2024 09/04/2021, 11/23/2020, 10/26/2020 Influenza Vaccine (#1) 2025 , 05/27/2021 Pneumococcal vaccine <65 Aged Out No longer eligible based on patient's age to complete this topic Insurance AETNA SIG [id number] [place] [address] COMMERCIAL GENERIC [facility] [id number] Care Teams Interactive Media Marketing Strategist Relationship Specialty Start Date End Date No, Physician PCP - General 07/16/22
[2025-03-16 13:11] LABS: Hematocrit 40.2 % (37.0-47.0); Hemoglobin 13.1 g/dL (12.0-15.0); Immature Granulocyte Percent A 0.2 % (0-0.5); Lymphocytes Absolute Auto 2.19 K/mm3 (0.9-3.2); Mean Corpuscular HGB Conc 32.6 g/dl (32-36); Mean Corpuscular Hemoglobin 31.0 pg (26-34); Mean Corpuscular Volume 95.3 fl (80-100); Nucleated Red Blood Cells Absolute Auto 0.000 K/mm3 (0.0-0.012); Nucleated Red Blood Cells Perc 0.0 % (0.0-0.2); Platelet Count Result 248 k/mm3 (150-375); Red Blood Count 4.22 M/mm3 (4.2-5.4); White Blood Count 4.8 K/mm3 (4.5-10.0)
[2025-03-16 13:12] LABS: Alanine Aminotransferase 22 U/L (6-35); Albumin Level 4.4 g/dL (3.5-5.1); Alkaline Phosphatase 38 U/L (38-126); Anion Gap 5 mmol/L (4-12); Aspartate Amino Transferase 50 U/L (14-36); Bilirubin,Total 0.4 mg/dL (0.2-1.3); Blood Urea Nitrogen 13 mg/dL (7-17); Calcium 9.0 mg/dL (8.4-10.2); Carbon Dioxide 27 mmol/L (22-30); Chloride 108 mmol/L (98-107); Cholesterol 151 mg/dL (0-200); Estimated Glomerular Filt Rate > 60; Glucose 77 mg/dL (65-110); HDL Direct 66 mg/dL; Potassium 4.4 mmol/L (3.4-5.0); Sodium 140 mmol/L (137-145); Total Protein 6.9 g/dL (6.3-8.2); Triglycerides 60 mg/dL (<150)
[2025-03-16 13:43] LABS: Thyroid Stimulating Hormone Reflex 2.080 uIU/mL (0.465-4.68)
== END 2025-03-16 10:04 | disposition home or self-care (01) ==
LOC: ANHGOSHLAB 10:04
PROVIDERS: PCP Nurse Practitioner Family; Visit Provider Nurse Practitioner Family
DX: Z00.00 Encounter for general adult medical examination without abnormal findings (principal); Z13.220 Encounter for screening for lipoid disorders; R74.8 Abnormal levels of other serum enzymes; E55.9 Vitamin D deficiency, unspecified
CPT/HCPCS: 36415; 80053; 80061; 82306; 84443; 85025

== ENCOUNTER 2025-06-30 08:30 | Outpatient (CLI) | payer OTHER, SELFPAY ==
--- OUTSIDE RECORDS SUMMARY | 2025-06-30 08:44 | XMS_ITS | Clinical Summary ---
Author Organization [facility] Address [address] [place] [address] Care Team Providers Care Home Organizer Name Role Phone Unavailable Primary Care Provider Unavailabl e Immunizations Immunization Administration Dates Next Due MODERNA COVID-19 (12+) MRNA, LNP-S, PF, 100 MCG/ 0.5 ML DOSE 11/23/2020,10/26/2020 Social History Tobacco Use Types Packs/Day Years Used Date Smoking Tobacco: Never Assessed Comments Unknown Sex and Gender Information Value Date Recorded Sex Assigned at Not on file Legal Sex Female 12:06 PM COAL PASSER Gender Identity Not on file Sexual Orientation Not on file Plan of Treatment Health Maintenance Due Date Last Done Comments Cervical Cancer Screening Pa p Smear (Age 30 to 64) Every 3 Years 1989 Annual Physical 1992 Hepatitis C 2007 DTaP, Tdap and Td Vaccines ( 1 - Tdap) 2008 Hepatitis B Vaccines (1 of 3 - 19+ 3-dose series) 2008 HPV Vaccines (1 - 3-dose SCD M series) 2016 Cervical Cancer Screening Pa p with HPV Testing (Age 30 to 64) Every 5 Years 2019 Cervical Cancer Screening wi th HPV 2019 COVID-19 Vaccine ( - 2024-2 6 season) 2025 11/23/2020, 10/26/2020 Influenza Adult (#1) 2025 Hepatitis A Vaccines Aged Out No long er eligible based on patient's age to complete this topic Meningococcal B Vaccine Aged Out No l onger eligible based on patient's age to complete this topic Meningococcal Vaccine Aged Out No zakiya maria luisa eligible based on patient's age to complete this topic Pneumococcal Vaccine: Pediatrics (0 to 5 Years) and At-Risk Patients (6 to 49 Years) Aged Out No longer eligible b ased on patient's age to complete this topic RSV Immunizations Under 20 Months Aged Out No longer eligible b ased on patient's age to complete this topic
--- OUTSIDE RECORDS SUMMARY | 2025-06-30 08:44 | XMS_ITS | Clinical Summary ---
Author Organization [facility] Address [address] [place] [address] Phone Care Team Providers Care Environmental Services Specialist Name Role Phone Unavailable Primary Care Provider [...] 19+ 3-dose series) 2008 HPV/Cotest (21-29) 2010 HPV VACCINES (1 - 3-dose SCDM series) 2016 CERVICAL CANCER SCREENING 2019 HPV/Cotest (30-65) 2019 PAP SMEAR 2019 INFLUENZA VACCINE (#1) 2025 COVID-19 Vaccine ( season) 04/17/202504/2021, 10/26/2020 Insurance [employer] PPO
--- OUTSIDE RECORDS SUMMARY | 2025-06-30 08:44 | XMS_ITS | Clinical Summary ---
Author Organization [facility] [address] Address [address] [place] [address] Care Team Providers Care Wireline Operator Name Role Phone No, Physician Primary Care Provider Allergies No known active allergies Medications fluticasone propionate (FLONASE) 50 mcg/actuation nasal spray Administer 1 spray into each nostril daily Active loratadine (Claritin) 10 mg tablet Take 10 mg by mouth daily Active omeprazole (PriLOSEC) 10 mg capsule Take 10 mg by mouth daily Active vit 99-vsfa-wmdpp-d mayers 27mg iron- 800 mcg-250 mg capsule [...] on file Legal Sex Female 1:43 PM HEAD RIGGER Gender Identity Not on file Sexual Orientation Not on file Obstetrics History Para Term AB IAB SAB Ectopic Multiple Livin g Live Births 1 Date Outcome GA Total Labor Labor/2nd/3rd Weight Sex Type Anes PTL Sarita A1 A5 Name Clin Last Filed Vital Signs Vital Sign Reading Time Taken Comments Blood Pressure 132/84 07/16/2022 4:08 PM HEAD RIGGER Pulse 80 07/16/2022 4:08 PM HEAD RIGGER Temperature 36.6 C (97.8 F) 07/16/2022 4:08 PM HEAD RIGGER Respiratory Rate - - Oxygen Saturation 98% 07/16/2022 4:08 PM HEAD RIGGER Inhaled Oxygen Concentration - - Weight 65.8 kg (145 lb 1.6 oz) 07/16/2022 4:08 P M HEAD RIGGER Height - - Body Mass Index - [...] 3-dose SCD M series) 2016 Covid-19 Vaccine (2024-2 6 season) 2025 09/04/2021, 11/23/2020, 10/26/2020 Influenza Vaccine (#1) 2025 , 05/27/2021 Pneumococcal vaccine <65 Aged Out No longer eligible based on patient's age to complete this topic Insurance AETNA SIG [id number] COMMERCIAL GENERIC [facility] [id number] Care Teams Wireline Operator Relationship Specialty Start Date End Date No, Physician PCP - General 07/16/22
== END 2025-06-30 08:31 | disposition home or self-care (01) ==
LOC: ANHGOSHLAB 08:32
PROVIDERS: Visit Provider Obstetrics & Gynecology
DX: Z34.90 Encounter for supervision of normal pregnancy, unspecified, unspecified trimester (principal)
CPT/HCPCS: 84702; 86336

== ENCOUNTER 2025-07-25 08:16 | Outpatient (CLI) | payer OTHER, SELFPAY ==
[2025-07-25 13:05] LABS: Hematocrit 35.2 % (37.0-47.0); Hemoglobin 11.6 g/dL (12.0-15.0); Mean Corpuscular HGB Conc 33.0 g/dl (32-36); Mean Corpuscular Hemoglobin 31.8 pg (26-34); Mean Corpuscular Volume 96.4 fl (80-100); Platelet Count Result 224 k/mm3 (150-375); Red Blood Count 3.65 M/mm3 (4.2-5.4); White Blood Count 8.4 K/mm3 (4.5-10.0)
[2025-07-25 13:36] LABS: Thyroid Stimulating Hormone 1.460 uIU/mL (0.465-4.680)
[2025-07-25 13:46] LABS: HIV 1/2 Ab P24 Ag Result Negative (Negative)
[2025-07-25 13:49] LABS: Syphilis IgG/IgM Antibody Non-Reactive (Nonreactive)
[2025-07-25 13:52] LABS: Hepatitis B Surface Antigen Negative (Negative)
[2025-07-25 13:55] LABS: Add Urine Microscopic? YES; Appearance Urine Turbid (Clear); Glucose Urine UA Negative (Negative); Leukocyte Esterase Ur Negative LEU/UL (Negative); Nitrate Urine Negative (Negative); Non Pathogenic Casts 0-2; Specific Grav Ur 1.015 (1.001-1.035)
[2025-07-26 13:09] LABS: Varicella-Zoster Ab, IgM <0.91 index (0.00-0.90)
== END 2025-07-25 08:17 | disposition home or self-care (01) ==
LOC: ANHGOSHLAB 08:17
PROVIDERS: PCP Nurse Practitioner Family; Visit Provider Obstetrics & Gynecology
DX: Z34.90 Encounter for supervision of normal pregnancy, unspecified, unspecified trimester (principal)
CPT/HCPCS: 36415; 81001; 83020; 84443; 85027; 85660; 86593; 86703; 86762; 86787; 86803; 86850; 86900; 86901; 87086; 87340; G0432